=== PATIENT | female | born 1950 | race Two or more races ===

== ENCOUNTER 2024-07-24 07:06 | Inpatient (IN) | payer MEDICARE, OTHER ==
[~2024-07-24] VITALS: Ht 162.6 cm; Wt 74.9 kg
[~2024-07-24 07:06] MED LIST: ACET-1304 PO; ALBUAER3 IN; ATOR20TA PO; BENA10TA90 PO; CELE200C PO; FAMO-68 PO; GABA-339 PO; GEMF-66 PO; LORA-622 PO; METF-489 PO; METH2.5T PO
[2024-07-24] MEDS: VANCOMYCIN HCL 1000 MG VL ONE ×2 (07:32→09:11)
[2024-07-24] MEDS: ACETAMINOPHEN IV 100 ML IV ONE (07:32)
[2024-07-24] MEDS: VANCOMYCIN 1GM/250ML KIT 250 ML IV ONE (08:30)
[2024-07-24] MEDS ORDERED: ONDANSETRON HCL 4 MG/2 ML VIAL ONE (08:35)
[2024-07-24] MEDS ORDERED: KETOROLAC TROMETH 30 MG/ML 1ML VIAL ONE (08:35)
[2024-07-24] MEDS ORDERED: KETAMINE 50mg/ML 1ml syringe ONE (08:36)
[2024-07-24] MEDS ORDERED: GLYCOPYRROLATE 0.2 MG/ML 1ML VIAL ONE (08:36)
[2024-07-24] MEDS ORDERED: PROPOFOL 10 MG/ML 20 ML IV ONE (08:36)
[2024-07-24] MEDS ORDERED: LIDOCAINE 1% INJ PF 5ML AMP ONE (08:36)
[2024-07-24] MEDS: KETOROLAC TROMETH 30 MG/ML 1ML VIAL ONE (09:12)
[2024-07-24] MEDS: BUPIVACAINE HCL 0.25% P/F 10 ML VIAL ONE (09:13)
[2024-07-24] MEDS: ACETAMINOPHEN IV 1000 MG/100ML (10MG/ML) IV ONE (09:15)
[2024-07-24] MEDS: PREGABALIN CAPSULE 75 MG CAP PO ONE (09:15)
[2024-07-24] MEDS ORDERED: TRANEXAMIC ACID 20 ML ONE (09:15)
[2024-07-24] MEDS: CELECOXIB 100 MG CAP PO ONE (09:15)
[2024-07-24] MEDS ORDERED: DexAMETHasone SOD PHOS 10MG/1ML VIAL INJ ONE (09:35)
[2024-07-24] MEDS ORDERED: PHENYLEPHRINE HCL 10 MG/ML VL ONE ×2 (10:09→10:11)
[2024-07-24] MEDS ORDERED: SODIUM CHLORIDE LOCK 0 ML ONE (10:09)
[2024-07-24] MEDS ORDERED: SODIUM CHLORIDE LOCK 10 ML ONE (10:11)
[2024-07-24] MEDS: CEFEPIME 1GM/ 50ML 50 ML IV ONE (10:23)
[2024-07-24] MEDS: ROPIVACAINE 0.5% (5MG/ML) 20ML AMPULE IJ ONE (10:38)
[2024-07-24] MEDS: BUPIVACAINE HCL 50 ML ONE (10:39)
[2024-07-24] MEDS: MORPHINE SULF PF 5 MG/10 ML VIAL ONE (10:39)
[2024-07-24] MEDS ORDERED: NITROGLYCERIN 0.4 MG SL TAB SL PRN (11:15)
[2024-07-24] MEDS ORDERED: ALBUTEROL SULF HFA 90MCG INH 200DOSE IN SCH (11:15)
[2024-07-24] MEDS ORDERED: MORPHINE SULFATE INJ 2 MG/ml SYRG IV PRN (11:15)
[2024-07-24] MEDS ORDERED: DEXTROSE (50%) 50ML SYRG IV PRN (11:15)
[2024-07-24] MEDS: LACTATED RINGER'S 1,000 ML IV SCH (11:21)
[2024-07-24] MEDS ORDERED: ePHEDrine SULFATE 50 MG/ML AMP IV PRN (11:30)
[2024-07-24] MEDS ORDERED: hydrALAZINE HCL 20 MG/ML VL IV PRN (11:30)
[2024-07-24] MEDS ORDERED: ONDANSETRON HCL 4 MG/2 ML VIAL IV PRN (11:30)
[2024-07-24] MEDS ORDERED: NALOXONE HCL 0.4 MG/ML VIAL IV PRN (11:30)
[2024-07-24] MEDS ORDERED: oxyCODONE HCL 5MG TAB PO PRN (11:30)
[2024-07-24] MEDS ORDERED: fentaNYL CITRATE 100 MCG/2 ML VL IV PRN (11:30)
[2024-07-24] MEDS ORDERED: HYDROmorphone HCL 2 MG/ML VL/or syr IV PRN (11:30)
[2024-07-24] MEDS ORDERED: FLUMAZENIL 0.1 MG/ML INJ 10ML MDV IV PRN (11:30)
[2024-07-24] MEDS: ACCU-CHEK COMFORT CURVE STRIP VI SCH (12:00)
[2024-07-24] MEDS: InsuLIN REG 1unit/0.01ml Soln (100units/ml) SC SCH ×2 (12:00→22:02)
--- NOTE | 2024-07-24 12:48 | DVH ---
CLINICAL INDICATION: Status post right VALERIA TECHNIQUE: 1 radiographic views of the pelvis were obtained. Comparison: None FINDINGS/IMPRESSION: Postsurgical changes from right hip arthroplasty.
[2024-07-24 12:55] VITALS: BP 107/62; PULSE 74; RESP 18; TEMP 97.4; O2SAT 97
[2024-07-24 13:00] VITALS: RESP 16
[2024-07-24] MEDS: HYDROmorphone HCL 2 MG/ML VL/or syr IV PRN (13:59)
[2024-07-24] MEDS: SODIUM CHLOR 0.9% PF (SALINE LOCK) 10ML VIAL/SYR IV SCH (14:00)
[2024-07-24] MEDS: ONDANSETRON HCL 4 MG/2 ML VIAL IV PRN (16:35)
[2024-07-24 16:50] VITALS: BP 129/66; PULSE 74; RESP 18; TEMP 97.4; O2SAT 95
--- NOTE | 2024-07-24 17:34 | DVHOP2 ---
Operative Report - 2 Report Details Date: 07/24/24 Preop Diagnosis: Right hip osteoarthritis Postop Diagnosis: As above Surgeon: J Lusi Walters MD Manager Call Center: Gloria Guaman NP Anesthesiologist: Jamal VU Anesthesia: Regional Implant: [employer] Size 1 High offset polaris stem 50 R3 Dual mobility 28+ femoral head Consent: The patient was informed of the risks and benefits of the procedure. These include but are not limited to complications of anesthesia, postoperative infection, incomplete relief of symptoms, recurrence of symptoms, damage to blood vessels, nerves and tendons, deep venous thrombosis, pulmonary embolism and possible need for repeat surgery in the future. Estimated Blood Loss: 300 cc Name of Procedure Performed Right total hip replacement using computer navigation Procedure Details Procedure Details: FINDINGS: Extensive degenerative disease with grade IV changes INDICATION: This patient has failed non-operative treatments for hip arthritis and is now indicated for a total hip replacement. Preoperatively in the waiting area as well as in the office, I had a long discussion with the patient regarding the plan, the expected outcome, the risks, benefits, and alternatives of surgery. The risks include, but are not limited to, infection (which may require future surgery and removal of implants) , bleeding (which may require a transfusion), damage to nerves, arteries, veins, tendons, muscles and other adjacent structures. Also discussed the possibilities of dislocation, leg-length discrepancy, intraoperative fractures, implant loosening, heterotopic bone formation, and revision for variety of reasons, and medical complications etc. This was discussed at length and consent has been obtained. DESCRIPTION OF PROCEDURE: In the preoperative holding area, the consent was reviewed and the appropriate extremity was verified by the patient and marked with my initials. The patient was then transferred to the operating theatre. Appropriate anesthetia was induced. All bony prominences were well padded. A time out was performed verifying the side and site of surgery according to standard protocol. Preoperative antibiotics were given. Tranexamic acid was given. The patient was then placed in the lateral decubitus position and fixed with rigid pelvic fixation. All bony prominences were well padded and an axillary roll was placed. The affected hip area was then prepped and draped in the usual sterile fashion. Using an 11-blade, three stab incisions were made over the iliac crest. Two threaded guide pins were inserted into the crest confirming to be in bone. The pelvic array was attached to the pins and tightened. We made a standard posterolateral incision sharply through the skin and carried our dissection down through subcutaneous tissue to the underlying fascia achieving hemostasis where necessary. We incised the fascia in line with our incision. We identified and protected the sciatic nerve. We took down the external rotators and hip capsule from their insertion into the greater trochanter, tagged them and retracted them posteriorly for further protection of the sciatic nerve. A check point was placed into the greater trochanter and the hip center and leg length length were registered. We then dislocated the femoral head and performed an osteotomy of the femoral neck in accordance with our pre-operative plan. The labrum was excised with a long-handle knife, and we exposed the acetabular rim and cotyloid fossa. We then reamed up to our final size in accordance with the preoperative plan. We copiously irrigated and then impacted the final cup into position. We con firmed the position with the robotic navigation guidance. We irrigated the cup and impacted the liner, checking to make sure it was well seated. Attention was then turned to the femur. We used a box osteotome followed by a canal finder to gain entry to the canal. Intramedullary contents were suctioned and care was taken to ensure they did not touch the tissues. We sequentially reamed until good cortical contact, then broached up to out final size. We trialed with the appropriate femoral neck and head and reduced the hip. The hip was taken through a full range of motion. The hip soft tissues were examined in extension and external rotation, the anterior capsule and IT band were palpated, and combined anteversion was determined to be 40 degrees. The hip was stable at maximum flexion, at 90 degrees of flexion and 45 degrees of internal rotation and the position of sleep. Leg lengths were restored as shown using the computer navigation, and the trial LTC matched preoperative and intraoperative templating. The hip was then dislocated and trial components removed. We copiously irrigated the wound and impacted the final femoral stem into position. The femoral head was impacted onto a clean and dry trunion and confirmed to be seated. The hip was reduced ensuring to tissues in the acetabular cup. We again brought it through a full functional range of motion and there was no evidence for dislocation, instability, or impingement. The checkpoint was removed. A dilute betadine solution (17.5mL in 500mL saline) was used to wash the joint and left to sit for 3 minutes. This was then irrigated out with copious amounts of pulse lavage. We sprinkled 1g vancomycin powder below the fascia and 1g above the fascia. We copiously irrigated the wound and soft tissues. The short external rotators and capsule were repaired to the greater trochanter through drill holes, and the quadratus was repaired. We palpated the sciatic nerve in continuity without tension. The fascia was closed with vicryl and a barbed suture. We closed over the fascia with vicryl suture and re-approximated the skin with nigel. A sterile dressing was placed. We returned the patient to the supine position. We verified all lower extremity compartments were soft and compressible and that we had intact distal pulses and checked our leg length restorationism. The patient was then transferred to the recovery room in stable condition. Condition Good Disposition Still a Patient J LUIS WALTERS MD Jul 24, 2024 17:34
[2024-07-24 20:00] VITALS: PULSE 84; RESP 17; O2SAT 97
[2024-07-24] MEDS: GEMFIBROZIL 600 MG TAB PO SCH (21:49)
[2024-07-24] MEDS: DOCUSATE SOD 100 MG CAP PO SCH (21:50)
[2024-07-24] MEDS: ATORVASTATIN 20 MG TAB PO SCH (21:50)
[2024-07-24] MEDS: GABAPENTIN 300 MG CAP PO SCH (21:52)
[2024-07-25] VITALS (7 sets, daily range): BP systolic 100–149; BP diastolic 50–71; PULSE 62–98; RESP 14–20; TEMP 97.6–99.3; O2SAT 94–98
[2024-07-25 06:30] LABS: Basophils # (auto) 0 10 ^3/uL (0-0.2); Basophils % (auto) 0.1 % (0.0-2.0); Eosinophils # (auto) 0 10 ^3/uL (0-0.8); Eosinophils % (auto) 0.3 % (0.0-7.0); Hematocrit 31.4 % (36.0-46.0); Hemoglobin 10.5 g/dL (12.2-16.2); Lymphocytes # (auto) 1.6 10 ^3/uL (0.4-5.4); Lymphocytes % (auto) 16.3 % (10.0-50.0); Mean Corpuscular Hemoglobin 33.2 pg (28.0-32.0); Mean Corpuscular Hgb Conc. 33.6 g/dL (32.0-36.0); Monocytes % (auto) 10.7 % (0.0-12.0); Neutrophils # (auto) 7.1 10 ^3/uL (1.6-8.6); Neutrophils % (auto) 72.6 % (37.0-80.0); Platelet Count (auto) 265 10^3/uL (140-450); Red Blood Cells 3.17 10^6/uL (4.0-5.20); White Blood Cell 9.8 10^3/uL (4.4-10.8)
[2024-07-25 07:23] LABS: Alanine Aminotransferase 26 U/L (7-40); Albumin 3.8 g/dL (3.2-4.8); Alkaline Phosphatase 108 U/L (46-116); Anion Gap 10 (5-15); Aspartate Aminotransferase 39 U/L (13-40); BUN/Creatinine Ratio 22.8 (10.0-20.0); Blood Urea Nitrogen 18 mg/dL (9-23); Carbon Dioxide 24 mmol/L (20-31); Chloride 105 mmol/L (98-107); Glucose 102 mg/dL (74-106); Potassium 4.4 mmol/L (3.5-5.1); Sodium 139 mmol/L (136-145)
[2024-07-25 07:24] LABS: Bilirubin, Total 0.5 mg/dL (0.2-1.0); Total Protein 6.1 g/dL (5.7-8.2)
--- NOTE | 2024-07-25 08:09 | DVHPN2 ---
Progress Note Date Seen: Jul 25, 2024 Medical Necessity Reason Pt with a Central, PICC or Fol: No Subjective Patient reports: No new complaints Objective vital signs Vital Sign Date Time Temp Pulse Resp B/P (MAP) Pulse Ox O2 Delivery O2 Flow Rate FiO2 07/25/24 05:00 98.0 76 20 131/58 (82) 95 98.0 07/24/24 20:00 Nasal Cannula* 1 24 Total Intake and Output 07/24/24 07/24/24 07/25/24 15:00 23:00 07:00 Intake Total 100 ml 240 ml 400 ml Output Total 0 ml Balance 100 ml 240 ml 400 ml medications Current Medications Medications Dose Ordered Sig/Shawn Route Start Time Stop Time Status Last Admin Dose Admin Albuterol 90 mcg PRN IN 07/24/24 11:15 Cancel Atorvastatin Calcium 20 mg HS PO 07/24/24 22:00 07/24/24 21:50 20 MG Benazepril HCl 5 mg DAILY PO 07/25/24 10:00 Famotidine 40 mg DAILY PO 07/25/24 10:00 Gemfibrozil 600 mg HS PO 07/24/24 22:00 07/24/24 21:49 600 MG Loratadine 10 mg DAILY PO 07/25/24 10:00 Gabapentin 600 mg HS PO 07/24/24 22:00 Lactated Ringer's 1,000 ml @ 100 mls/hr Q10H IV 07/24/24 11:15 07/24/24 23:29 100 MLS/HR Sodium Chloride 10 ml Q8HR IV 07/24/24 14:00 07/25/24 06:20 10 ML Oxycodone/ Acetaminophen 1 tab Q4HP PRN PO 07/24/24 11:15 Hydromorphone HCl 1 mg Q2HP PRN IV 07/24/24 11:15 07/24/24 13:59 1 MG Ondansetron HCl 4 mg Q6HP PRN IV 07/24/24 11:15 07/24/24 16:35 4 MG Docusate Sodium 100 mg Q12HR PO 07/24/24 22:00 07/24/24 21:50 100 MG Enoxaparin Sodium 40 mg DAILY SC 07/25/24 10:00 Nitroglycerin 0.4 mg Q5MINP PRN SL 07/24/24 11:15 Morphine Sulfate 2 mg Q30M PRN IV 07/24/24 11:15 Vancomycin HCl 250 ml @ 250 mls/hr DAILY IV 07/25/24 10:00 07/25/24 10:59 Cefepime HCl 50 ml @ 12.5 mls/hr DAILY IV 07/25/24 10:00 Diagnostic Test (Pha) 1 strip ACHS 07/24/24 11:30 07/25/24 06:20 1 STRIP Insulin Human Regular HS SC 07/24/24 22:00 07/24/24 22:02 3 UNITS Insulin Human Regular AC SC 07/24/24 11:30 Dextrose 50 ml UD PRN IV 07/24/24 11:15 Examination: GENERAL:Normal, MSK:Abnormal laboratory and microbiology Laboratory Tests 07/25/24 06:06 Test 07/25/24 06:06 Range/Units Serum Glucose 102 74-106 mg/dL Problem List/Assessment/Plan Problem List/Assessment/Plan 1. pain control 2. WBAT RLE with walker and posterior hip precautions 3. DVT ppx 4. physical therapy 5. d/c planning for SNF 6. patient scheduled for follow up on 08/09/2024 at 11:30 Plan discussed with: Patient Date of Service: Jul 25, 2024 Billing Provider: TJ WALTERS MD Common Visit Codes: NOT BILLABLE TAD MACK NP Jul 25, 2024 08:09
[2024-07-25] MEDS: CEFEPIME 1GM/ 50ML 50 ML IV SCH (10:13)
[2024-07-25] MEDS: FAMOTIDINE 20 MG TAB PO SCH (10:14)
[2024-07-25] MEDS: LORATADINE 10 MG TAB PO SCH (10:14)
[2024-07-25] MEDS: ENOXAPARIN SOD 40 MG/0.4 ML SYRINGE SC SCH (10:26)
[2024-07-25] MEDS: LACTATED RINGER'S 1,000 ML IV SCH (11:15)
--- NOTE | 2024-07-25 11:20 | DVHHP2 ---
Review of Systems Allergies: Coded Allergies: Erythromycin (Unverified Adverse Reaction, Severe, Abdominal pain, 07/20/24) Penicillins (Unverified Adverse Reaction, Severe, SOB, 07/20/24) Medications Current Medications Medications Dose Ordered Sig/Shawn Route Start Time Stop Time Status Last Admin Dose Admin Albuterol 90 mcg PRN IN 07/24/24 11:15 Cancel Atorvastatin Calcium 20 mg HS PO 07/24/24 22:00 07/24/24 21:50 20 MG Benazepril HCl 5 mg DAILY PO 07/25/24 10:00 Famotidine 40 mg DAILY PO 07/25/24 10:00 07/25/24 10:14 40 MG Gemfibrozil 600 mg HS PO 07/24/24 22:00 07/24/24 21:49 600 MG Loratadine 10 mg DAILY PO 07/25/24 10:00 07/25/24 10:14 10 MG Gabapentin 600 mg HS PO 07/24/24 22:00 Lactated Ringer's 1,000 ml @ 100 mls/hr Q10H IV 07/24/24 11:15 07/24/24 23:29 100 MLS/HR Sodium Chloride 10 ml Q8HR IV 07/24/24 14:00 07/25/24 06:20 10 ML Oxycodone/ Acetaminophen 1 tab Q4HP PRN PO 07/24/24 11:15 Hydromorphone HCl 1 mg Q2HP PRN IV 07/24/24 11:15 07/24/24 13:59 1 MG Ondansetron HCl 4 mg Q6HP PRN IV 07/24/24 11:15 07/24/24 16:35 4 MG Docusate Sodium 100 mg Q12HR PO 07/24/24 22:00 07/25/24 10:14 100 MG Enoxaparin Sodium 40 mg DAILY SC 07/25/24 10:00 07/25/24 10:26 40 MG Nitroglycerin 0.4 mg Q5MINP PRN SL 07/24/24 11:15 Morphine Sulfate 2 mg Q30M PRN IV 07/24/24 11:15 Cefepime HCl 50 ml @ 12.5 mls/hr DAILY IV 07/25/24 10:00 07/25/24 10:13 12.5 MLS/HR Diagnostic Test (Pha) 1 strip ACHS 07/24/24 11:30 07/25/24 06:20 1 STRIP Insulin Human Regular HS SC 07/24/24 22:00 07/24/24 22:02 3 UNITS Insulin Human Regular AC SC 07/24/24 11:30 Dextrose 50 ml UD PRN IV 07/24/24 11:15 Exam Vital Signs Vital Signs Date Time Temp Pulse Resp B/P (MAP) Pulse Ox O2 Delivery O2 Flow Rate FiO2 07/25/24 08:55 99.3 74 14 119/55 (76) 98 99.3 07/24/24 20:00 Nasal Cannula* 1 24 Labs/Xrays Labs Test 07/25/24 06:06 07/25/24 05:59 Range/Units White Blood Count 9.8 4.4-10.8 10^3/uL Red Blood Count 3.17 L 4.0-5.20 10^6/uL Hemoglobin 10.5 L 12.2-16.2 g/dL Hematocrit 31.4 L 36.0-46.0 % Mean Corpuscular Volume 99.0 80.0-100.0 fL Mean Corpuscular Hemoglobin 33.2 H 28.0-32.0 pg Mean Corpuscular Hemoglobin Concent 33.6 32.0-36.0 g/dL Red Cell Distribution Width 13.0 11.8-14.3 % Platelet Count 265 140-450 10^3/uL Mean Platelet Volume 8.0 6.9-10.8 fL Neutrophils (%) (Auto) 72.6 37.0-80.0 % Lymphocytes (%) (Auto) 16.3 10.0-50.0 % Monocytes (%) (Auto) 10.7 0.0-12.0 % Eosinophils (%) (Auto) 0.3 0.0-7.0 % Basophils (%) (Auto) 0.1 0.0-2.0 % Neutrophils # (Auto) 7.1 1.6-8.6 10 ^3/uL Lymphocytes # (Auto) 1.6 0.4-5.4 10 ^3/uL Monocytes # (Auto) 1.0 0-1.3 10 ^3/uL Eosinophils # (Auto) 0 0-0.8 10 ^3/uL Basophils # (Auto) 0 0-0.2 10 ^3/uL Nucleated Red Blood Cells 0.0 % Sodium Level 139 136-145 mmol/L Potassium Level 4.4 3.5-5.1 mmol/L Chloride Level 105 98-107 mmol/L Carbon Dioxide Level 24 20-31 mmol/L Anion Gap 10 5-15 Blood Urea Nitrogen 18 9-23 mg/dL Creatinine 0.79 0.550-1.02 mg/dL Glomerular Filtration Rate Calc 77 >90 mL/min BUN/Creatinine Ratio 22.8 H 10.0-20.0 Serum Glucose 102 74-106 mg/dL Calcium Level 10.0 8.7-10.4 mg/dL Total Bilirubin 0.5 0.2-1.0 mg/dL Aspartate Amino Transferase (AST) 39 13-40 U/L Alanine Aminotransferase (ALT) 26 7-40 U/L Alkaline Phosphatase 108 46-116 U/L Total Protein 6.1 5.7-8.2 g/dL Albumin 3.8 3.2-4.8 g/dL POC Glucose 106 70-106 mg/dl Assessment/Plan Assessment/Plan see dictated note Plan discussed with: Patient My Orders Orders - GIOVANY HAHN MD Procedure Category Date Status Time Lactated Ringers 1000 PHA 07/25/24 Verified mL 11:15 Hydromorphone PHA 07/25/24 Verified Injection (Dilaudid 11:15 Complete Blood Count LAB 07/26/24 Verified 06:00 * Scheduler CONS 07/25/24 Verified Consult Date of Service: Jul 25, 2024 Billing Provider: GIOVANY HAHN MD Common Visit Codes: [id number] INP/OBS CARE (HIGH) Secondary Visit Codes: [id number] CARE PLAN 30 MINUTES GIOVANY HAHN MD Jul 25, 2024 11:20
--- NOTE | 2024-07-25 11:33 | DVHHP ---
ADMIT DATE: 07/25/2024 HISTORY OF PRESENT ILLNESS: The patient is a 74-year-old lady who was admitted after she underwent surgery on the right hip for DJD of the hip. The patient at this time denies any significant pain. No chest pain. No shortness of breath, nausea or vomiting. REVIEW OF SYSTEMS: Review of rest of systems is otherwise currently negative. PAST MEDICAL HISTORY: Significant for hypertension, hyperlipidemia, rheumatoid arthritis. MEDICATIONS: Include benazepril, Lipitor, gemfibrozil, gabapentin, methotrexate. ALLERGIES: TO ERYTHROMYCIN AND PENICILLIN. SOCIAL HISTORY: Denies smoking or alcohol. Lives alone. FAMILY HISTORY: Negative. PHYSICAL EXAMINATION: GENERAL: The patient is awake, alert. VITAL SIGNS: Temperature of 98, pulse of 76 per minute, blood pressure 130/58. SHEENT: Unremarkable. NECK: There is no JVD. No pedal edema. LUNGS: Equal bilaterally. No added sounds. CARDIOVASCULAR SYSTEM: S1, S2 is regular. No murmurs. ABDOMEN: Soft. There is no organomegaly. NEUROLOGIC: Nonfocal. MUSCULOSKELETAL: There is a dressing at the site of the right hip surgery. ASSESSMENT AND PLAN: * Hypertension, for which she will continue on benazepril. * Hyperlipidemia. * Fatty liver. * Rheumatoid arthritis, for which she is regularly on methotrexate. * Status post right hip surgery for degenerative joint disease of the hip. The patient will be placed on pain medication and receive physical therapy. Advance care planning, the patient is a full code. Time spent was 19 minutes. MD ANGELINA Cross/[facility] TID: [id number] RECEIPT: [id number]
[2024-07-25] MEDS: HYDROmorphone HCL 2 MG/ML VL/or syr IV PRN (15:40)
[2024-07-25] MEDS: BENAZEPRIL HCL 10 MG TAB PO SCH (16:00)
[2024-07-25] MEDS: VANCOMYCIN 1GM/250ML KIT 250 ML IV SCH (16:00)
[2024-07-26 01:00] VITALS: BP 148/75; PULSE 90; RESP 18; TEMP 98.4; O2SAT 95
[2024-07-26 05:00] VITALS: BP 105/57; PULSE 102; RESP 18; TEMP 98.3; O2SAT 93
[2024-07-26 07:01] LABS: Basophils # (auto) 0.1 10 ^3/uL (0-0.2); Basophils % (auto) 0.6 % (0.0-2.0); Eosinophils # (auto) 0.2 10 ^3/uL (0-0.8); Eosinophils % (auto) 1.8 % (0.0-7.0); Hematocrit 34.9 % (36.0-46.0); Hemoglobin 11.9 g/dL (12.2-16.2); Lymphocytes # (auto) 3.1 10 ^3/uL (0.4-5.4); Lymphocytes % (auto) 29.5 % (10.0-50.0); Mean Corpuscular Hemoglobin 33.8 pg (28.0-32.0); Mean Corpuscular Hgb Conc. 34.2 g/dL (32.0-36.0); Monocytes # (auto) 1.1 10 ^3/uL (0-1.3); Monocytes % (auto) 10.4 % (0.0-12.0); Neutrophils % (auto) 57.7 % (37.0-80.0); Nucleated Red Blood Cells % 0.1 %; Platelet Count (auto) 294 10^3/uL (140-450); Red Blood Cells 3.53 10^6/uL (4.0-5.20); Red Cell Distribution Width 13.1 % (11.8-14.3); White Blood Cell 10.5 10^3/uL (4.4-10.8)
--- NOTE | 2024-07-26 07:30 | DVHPN2 ---
Progress Note Date Seen: Jul 26, 2024 Medical Necessity Reason Pt with a Central, PICC or Fol: No Subjective Patient reports: No new complaints (patient is very tired this morning) Objective vital signs Vital Sign Date Time Temp Pulse Resp B/P (MAP) Pulse Ox O2 Delivery O2 Flow Rate FiO2 07/26/24 06:30 101 18 104/59 07/26/24 05:00 98.3 93 98.3 07/25/24 20:00 Nasal Cannula* 1 24 Total Intake and Output 07/25/24 07/25/24 07/26/24 15:00 23:00 07:00 Intake Total 920 ml 360 ml Balance 920 ml 360 ml medications Current Medications Medications Dose Ordered Sig/Shawn Route Start Time Stop Time Status Last Admin Dose Admin Albuterol 90 mcg PRN IN 07/24/24 11:15 Cancel Atorvastatin Calcium 20 mg HS PO 07/24/24 22:00 07/25/24 22:06 20 MG Benazepril HCl 5 mg DAILY PO 07/25/24 10:00 07/25/24 16:00 5 MG Famotidine 40 mg DAILY PO 07/25/24 10:00 07/25/24 10:14 40 MG Gemfibrozil 600 mg HS PO 07/24/24 22:00 07/25/24 22:06 600 MG Loratadine 10 mg DAILY PO 07/25/24 10:00 07/25/24 10:14 10 MG Gabapentin 600 mg HS PO 07/24/24 22:00 Sodium Chloride 10 ml Q8HR IV 07/24/24 14:00 07/26/24 06:01 10 ML Oxycodone/ Acetaminophen 1 tab Q4HP PRN PO 07/24/24 11:15 Ondansetron HCl 4 mg Q6HP PRN IV 07/24/24 11:15 07/26/24 05:50 4 MG Docusate Sodium 100 mg Q12HR PO 07/24/24 22:00 07/25/24 22:06 100 MG Enoxaparin Sodium 40 mg DAILY SC 07/25/24 10:00 07/25/24 10:26 40 MG Nitroglycerin 0.4 mg Q5MINP PRN SL 07/24/24 11:15 Morphine Sulfate 2 mg Q30M PRN IV 07/24/24 11:15 Cefepime HCl 50 ml @ 12.5 mls/hr DAILY IV 07/25/24 10:00 07/25/24 10:13 12.5 MLS/HR Dextrose 50 ml UD PRN IV 07/24/24 11:15 Lactated Ringer's 1,000 ml @ 75 mls/hr [id number] IV 07/25/24 11:15 07/25/24 11:15 75 MLS/HR Hydromorphone HCl 1 mg Q3HP PRN IV 07/25/24 11:15 07/26/24 06:00 1 MG Examination: GENERAL:Normal, MSK:Abnormal laboratory and microbiology Laboratory Tests 07/26/24 06:30 07/25/24 06:06 Test 07/25/24 06:06 Range/Units Serum Glucose 102 74-106 mg/dL Problem List/Assessment/Plan Problem List/Assessment/Plan 1. pain control 2. WBAT RLE with walker and posterior hip precautions 3. DVT ppx 4. physical therapy 5. d/c planning for SNF 6. patient scheduled for follow up on 08/09/2024 at 11:30 7. patient cleared for discharge to SNF from orthopedic standpoint with the following discharge recommendations: POSTOPERATIVE Posterior Total Hip INSTRUCTIONS Activity: 1. You can bear as much weight as you tolerate on your hip unless specifically instructed otherwise. You may use the walking aid which you were discharged with and switch to a cane whenever you feel comfortable doing so. You should use an assistive device until you can walk comfortably without it. Keep in mind that every patient moves at their own speed of recovery so take your time. 2. A physical therapist will visit you at home. 3. Although guarantees against a dislocation do not exist, the hip was noted to be sufficiently stable in surgery. Below are motions that you should dischargenot do for 4-6 weeks, depending on the surgical approach used. If there are questions, please call the office. a. Bend forward past 90 degrees b. Sit on a regular low chair, couch, car seat etc... c. Cross your legs d. Use a regular low toilet seat. e. Sleep on your stomach or on either side. 3. High impact activity such as jumping, aerobics, tennis, and skiing are not permitted during the first 3 months after surgery. These activities can contribute to accelerated wear and should be done with caution after this time. Discuss this with your surgeon if you have questions. 4. Although a bath or whirlpool is NOT permitted during the first 2-3 weeks, you may shower as soon as you get home from the hospital provided you are able to keep your bandage clean and dry and there is no wound drainage. If you are unable to place a secured covering over your bandage bed bath/sponge bath may likely be the more appropriate option. 5. Swimming is not permitted until the wound is healed, which typically occurs approximately 3-4 weeks after surgery. Wound Management: If the wound is draining please change the gauze pad on the wound until it stops. If drainage persists past 10 days please notify our office. If there is a sticky gel dressing over your wound, you may leave this in place for as long as it is clean and dry. If it becomes loose or causes skin irritation, it is OK to remove it and place clean gauze over your wound. 1. You might notice some bruising around the surgical site, this is normal. 2. Check your temperature on a daily basis. Please note that a low-grade temp below 101 is not uncommon after surgery especially during the first 3 days. Notify the office if your temperature spikes above 101.5 after the 3rd post- operative date. 3. Many patients experience significant swelling in the thigh, this may extend below the knee and sometimes to the ankle. Swelling increases during the first week and subsides during the following week. 4. Provided you have been on a blood thinner since surgery and have been up and about at least three times per day, the risk of a blood clot is low and this swelling is an expected part of recovery. It will largely or completely resolve by your first post-operative visit. 5. Crystal, if present, will be removed at 2 weeks during initial post-op visit. Medications: 1. You will be discharged with pain medication, Aspirin as a blood thinner and sometimes an anti-inflammatory medication such as Celebrex or Mobic might be prescribed. Please follow the instructions regarding these medicines as provided by your nurse at the hospital. 2. Narcotic pain medication has side effects, including constipation. Please ensure you continue to take stool softeners (Colace, Senna) while taking your pain medication to help protect against constipation. Getting up and moving around at least a few times per day helps with this also. 3. Lovenox 40 Sq x 12 days followed by one regular strength 325 mg coated aspirin daily for 4 weeks after surgery. Then, take one baby aspirin, 81 mg daily for 6 weeks more. A major, yet preventable, complication of Orthopaedic Surgery is a blood clot (DVT). It is important not to miss any doses of this important medication. 4. You should restart all of your prescription medications once discharged unless specifically instructed otherwise. 5. Herbal supplements may be restarted 2 weeks after surgery. Miscellaneous issues: 1. Driving is not permitted within the first 2 weeks. 2. Your first postoperative visit will take place 2weeks after discharge. Please call the office to arrange this appointment. 3. Antibiotic preventative treatment is required before dental or other invasive procedures. Please ask your surgeon about this at your first postoperative visit. Your hip replacement contains metal which may activate metal detectors. You may wish to carry a letter from your surgeon to communicate this to security personnel. If you experience chest pain, shortness of breath or severe painful calf swelling, go to the nearest emergency room to be evaluated. Please call our office once your situation is stabilized. Plan discussed with: Patient My Orders My Orders Orders - TAD MACK NP Procedure Category Date Status Time * [employer]ault [employer]ier CONS 07/25/24 Transmitted Consult Date of Service: Jul 26, 2024 Billing Provider: TJ WALTERS MD Common Visit Codes: NOT BILLABLE TAD MACK NP Jul 26, 2024 07:30
[2024-07-26 08:00] VITALS: PULSE 88; RESP 16
[2024-07-26] MEDS: OXYCODONE W/ ACETAMINOPHEN 5/325MG TABLET PO PRN (09:37)
--- NOTE | 2024-07-26 10:38 | DVHPN2 ---
Progress Note Date Seen: Jul 26, 2024 Medical Necessity Reason Pt with a Central, PICC or Fol: No Subjective Patient reports: No new complaints Review of Systems: HEENT:Normal, CVS:Normal, RESPIRATORY:Normal, GI:Normal, :Normal, MSK:Normal, NEURO:Normal Objective vital signs Vital Sign Date Time Temp Pulse Resp B/P (MAP) Pulse Ox O2 Delivery O2 Flow Rate FiO2 07/26/24 09:47 108/55 07/26/24 06:30 101 18 07/26/24 05:00 98.3 93 98.3 07/25/24 20:00 Nasal Cannula* 1 24 Total Intake and Output 07/25/24 07/25/24 07/26/24 15:00 23:00 07:00 Intake Total 920 ml 360 ml Balance 920 ml 360 ml medications Current Medications Medications Dose Ordered Sig/Shawn Route Start Time Stop Time Status Last Admin Dose Admin Albuterol 90 mcg PRN IN 07/24/24 11:15 Cancel Atorvastatin Calcium 20 mg HS PO 07/24/24 22:00 07/25/24 22:06 20 MG Benazepril HCl 5 mg DAILY PO 07/25/24 10:00 07/25/24 16:00 5 MG Famotidine 40 mg DAILY PO 07/25/24 10:00 07/25/24 10:14 40 MG Gemfibrozil 600 mg HS PO 07/24/24 22:00 07/25/24 22:06 600 MG Loratadine 10 mg DAILY PO 07/25/24 10:00 07/25/24 10:14 10 MG Gabapentin 600 mg HS PO 07/24/24 22:00 Sodium Chloride 10 ml Q8HR IV 07/24/24 14:00 07/26/24 06:01 10 ML Oxycodone/ Acetaminophen 1 tab Q4HP PRN PO 07/24/24 11:15 07/26/24 09:37 1 TAB Ondansetron HCl 4 mg Q6HP PRN IV 07/24/24 11:15 07/26/24 05:50 4 MG Docusate Sodium 100 mg Q12HR PO 07/24/24 22:00 07/25/24 22:06 100 MG Enoxaparin Sodium 40 mg DAILY SC 07/25/24 10:00 07/26/24 09:38 40 MG Nitroglycerin 0.4 mg Q5MINP PRN SL 07/24/24 11:15 Morphine Sulfate 2 mg Q30M PRN IV 07/24/24 11:15 Cefepime HCl 50 ml @ 12.5 mls/hr DAILY IV 07/25/24 10:00 07/26/24 09:58 12.5 MLS/HR Dextrose 50 ml UD PRN IV 07/24/24 11:15 Lactated Ringer's 1,000 ml @ 75 mls/hr [id number] IV 07/25/24 11:15 07/25/24 11:15 75 MLS/HR Hydromorphone HCl 1 mg Q3HP PRN IV 07/25/24 11:15 07/26/24 06:00 1 MG Examination: GENERAL:Normal, HEENT:Normal, NECK:Normal, LUNGS:Normal, CVS:Normal, ABDOMEN:Normal, MSK:Normal, SKIN:Normal, NEURO:Normal, :Normal laboratory and microbiology Laboratory Tests 07/26/24 06:30 07/25/24 06:06 Test 07/25/24 06:06 Range/Units Serum Glucose 102 74-106 mg/dL Problem List/Assessment/Plan Problem List/Assessment/Plan * Hypertension: dc benazepril * Hyperlipidemia. * Fatty liver. * Chest pain/nausea: trop, chest xray, tele * Rheumatoid arthritis, for which she is regularly on methotrexate. * Status post right hip surgery for degenerative joint disease of the hip. The patient will be placed on pain medication and receive physical therapy. 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 Worker CONS 07/25/24 Transmitted Consult Ekg Assessment RAYMOND 07/26/24 In Process 05:43 Ondansetron Hcl PHA 07/26/24 Verified (Zofran) 10:45 Morphine Sulfate PHA 07/26/24 Verified Injection 10:45 Pantoprazole PHA 07/26/24 Verified (Protonix) 10:45 Pantoprazole PHA 07/27/24 Verified (Protonix) 10:00 Coat Operator ORDERS 07/26/24 Verified 10:34 Troponin-I Hs LAB 07/26/24 Verified 10:34 Troponin-I Hs LAB 07/26/24 Verified 11:34 Troponin-I Hs LAB 07/26/24 Verified 13:34 Urinalysis LAB 07/26/24 Uncollected 10:34 Complete Blood Count LAB 07/27/24 Verified 06:00 Comprehensive LAB 07/27/24 Verified Metabolic Panel 06:00 Chest Portable XY 07/26/24 Verified 10:34 Date of Service: Jul 26, 2024 Billing Provider: GIOVANY HAHN MD Common Visit Codes: [id number] INP/OBS CARE(HIGH) Secondary Visit Codes: [id number] CARE PLAN 30 MINUTES GIOVANY HAHN MD Jul 26, 2024 10:38
[2024-07-26] MEDS ORDERED: ONDANSETRON HCL 4 MG/2 ML VIAL IV PRN (10:45)
--- NOTE | 2024-07-26 11:26 | DVH ---
CHEST RADIOGRAPH Indication: CHEST PAIN Technique: Single frontal view of the chest was obtained Comparison: None FINDINGS: Lines and Tubes: None Lungs: Bibasilar airspace opacities. Pleura: No effusion. No pneumothorax. Cardiomediastinal contours: Unremarkable Bones: No acute osseous abnormality. IMPRESSION: Bibasilar airspace opacities.
[2024-07-26 13:06] VITALS: BP 114/49; PULSE 103; RESP 16; TEMP 98.2; O2SAT 98
--- NOTE | 2024-07-26 13:39 | ECG ---
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
[2024-07-26] MEDS: PANTOPRAZOLE 40 MG/10 ML VIAL INJ IV ONE (15:42)
[2024-07-26 16:26] LABS: Urine Bacteria FEW /hpf (None Seen); Urine Blood Negative /uL (Negative); Urine Clarity Clear (Clear); Urine Color Light-Yellow (Yellow); Urine Mucus FEW (None Seen); Urine Protein, UAD Negative (Negative); Urine Specific Gravity 1.013 (1.001-1.035); Urine Squamous Epithelial Cell FEW /hpf (<5); Urine Urobilinogen Normal (Negative); Urine WBC 4 /HPF (0-5)
[2024-07-26 16:47] VITALS: BP 116/63; PULSE 92; RESP 16; TEMP 98.3; O2SAT 97
[2024-07-26 21:00] VITALS: BP 122/51; PULSE 92; RESP 18; TEMP 99.3; O2SAT 97
[2024-07-27] VITALS (8 sets, daily range): BP systolic 129–157; BP diastolic 54–80; PULSE 89–101; RESP 16–19; TEMP 97.9–99.8; O2SAT 92–98
[2024-07-27 07:02] LABS: Basophils # (auto) 0 10 ^3/uL (0-0.2); Basophils % (auto) 0.5 % (0.0-2.0); Eosinophils # (auto) 0.2 10 ^3/uL (0-0.8); Eosinophils % (auto) 2.8 % (0.0-7.0); Hematocrit 33.2 % (36.0-46.0); Hemoglobin 11.3 g/dL (12.2-16.2); Lymphocytes # (auto) 1.7 10 ^3/uL (0.4-5.4); Mean Corpuscular Hemoglobin 33.8 pg (28.0-32.0); Mean Corpuscular Hgb Conc. 34.1 g/dL (32.0-36.0); Mean Corpuscular Volume 99.2 fL (80.0-100.0); Monocytes % (auto) 12.2 % (0.0-12.0); Neutrophils # (auto) 5.3 10 ^3/uL (1.6-8.6); Neutrophils % (auto) 64.5 % (37.0-80.0); Nucleated Red Blood Cells % 0.1 %; Platelet Count (auto) 276 10^3/uL (140-450); Red Blood Cells 3.34 10^6/uL (4.0-5.20); Red Cell Distribution Width 13.5 % (11.8-14.3); White Blood Cell 8.2 10^3/uL (4.4-10.8)
[2024-07-27 07:15] LABS: Alanine Aminotransferase 17 U/L (7-40); Albumin 4.3 g/dL (3.2-4.8); Alkaline Phosphatase 101 U/L (46-116); Anion Gap 9 (5-15); Aspartate Aminotransferase 32 U/L (13-40); BUN/Creatinine Ratio 13.6 (10.0-20.0); Blood Urea Nitrogen 12 mg/dL (9-23); Calcium 9.8 mg/dL (8.7-10.4); Carbon Dioxide 24 mmol/L (20-31); Chloride 105 mmol/L (98-107); Potassium 4.2 mmol/L (3.5-5.1); Sodium 138 mmol/L (136-145)
[2024-07-27 07:16] LABS: Bilirubin, Total 0.6 mg/dL (0.2-1.0); Total Protein 6.7 g/dL (5.7-8.2)
[2024-07-27 07:17] LABS: Glucose 114 mg/dL (74-106)
[2024-07-27] MEDS: PANTOPRAZOLE 40 MG/10 ML VIAL INJ IV SCH (10:26)
--- NOTE | 2024-07-27 14:19 | DVHPN2 ---
Progress Note Date Seen: Jul 27, 2024 Medical Necessity Reason Pt with a Central, PICC or Fol: No Subjective Patient reports: No new complaints Review of Systems: HEENT:Normal, CVS:Normal, RESPIRATORY:Normal, GI:Normal, :Normal, MSK:Normal, NEURO:Normal Objective vital signs Vital Sign Date Time Temp Pulse Resp B/P (MAP) Pulse Ox O2 Delivery O2 Flow Rate FiO2 07/27/24 12:30 98.1 101 16 139/72 (94) 92 98.1 07/27/24 08:00 Nasal Cannula* 2 28 Total Intake and Output 07/26/24 07/26/24 07/27/24 15:00 23:00 07:00 Intake Total 50 ml 900 ml 400 ml Balance 50 ml 900 ml 400 ml medications Current Medications Medications Dose Ordered Sig/Shawn Route Start Time Stop Time Status Last Admin Dose Admin Albuterol 90 mcg PRN IN 07/24/24 11:15 Cancel Atorvastatin Calcium 20 mg HS PO 07/24/24 22:00 07/26/24 21:52 20 MG Gemfibrozil 600 mg HS PO 07/24/24 22:00 07/26/24 21:52 600 MG Loratadine 10 mg DAILY PO 07/25/24 10:00 07/27/24 10:26 10 MG Gabapentin 600 mg HS PO 07/24/24 22:00 07/26/24 21:52 600 MG Sodium Chloride 10 ml Q8HR IV 07/24/24 14:00 07/27/24 06:17 10 ML Oxycodone/ Acetaminophen 1 tab Q4HP PRN PO 07/24/24 11:15 07/27/24 10:39 1 TAB Docusate Sodium 100 mg Q12HR PO 07/24/24 22:00 07/27/24 10:26 100 MG Enoxaparin Sodium 40 mg DAILY SC 07/25/24 10:00 07/27/24 10:27 40 MG Nitroglycerin 0.4 mg Q5MINP PRN SL 07/24/24 11:15 Morphine Sulfate 2 mg Q30M PRN IV 07/24/24 11:15 Cefepime HCl 50 ml @ 12.5 mls/hr DAILY IV 07/25/24 10:00 07/27/24 11:58 12.5 MLS/HR Dextrose 50 ml UD PRN IV 07/24/24 11:15 Lactated Ringer's 1,000 ml @ 75 mls/hr [id number] IV 07/25/24 11:15 07/25/24 11:15 75 MLS/HR Ondansetron HCl 4 mg Q4HP PRN IV 07/26/24 10:45 Morphine Sulfate 2 mg Q4HPRN PRN IV 07/26/24 10:45 Pantoprazole Sodium 40 mg DAILY IV 07/27/24 10:00 07/27/24 10:26 40 MG Examination: GENERAL:Normal, HEENT:Normal, NECK:Normal, LUNGS:Normal, CVS:Normal, ABDOMEN:Normal, MSK:Normal, SKIN:Normal, NEURO:Normal, :Normal laboratory and microbiology Laboratory Tests 07/27/24 05:56 Test 07/27/24 05:56 Range/Units Serum Glucose 114 H 74-106 mg/dL Problem List/Assessment/Plan Problem List/Assessment/Plan * Hypertension: dc benazepril * Hyperlipidemia. * Fatty liver. * Chest pain/nausea: trop, chest xray, tele, cardio eval,echo * Rheumatoid arthritis, for which she is regularly on methotrexate. * Status post right hip surgery for degenerative joint disease of the hip. The patient will be placed on pain medication and receive physical therapy. Advance care planning, the patient is a full code- time spent 19 mins Plan discussed with: Patient, Daughter Date of Service: Jul 27, 2024 Billing Provider: GIOVANY HAHN MD Common Visit Codes: [id number] INP/OBS CARE(HIGH) GIOVANY HAHN MD Jul 27, 2024 14:19
[2024-07-27] MEDS: ASPirin 81 mg TAB PO ONE (14:30)
--- NOTE | 2024-07-27 16:00 | DVHINCON2 ---
Date Seen: Jul 27, 2024 Referring Physician MD Volodymyr Reason for Consultation Chest pain, elevated troponin History of Present Illness This is a 74-year-old female patient who recently underwent a total right hip replacement and was subsequently admitted as an inpatient. Cardiology is now being consulted for new onset chest pain. The patient reports that the chest pain began approximately two days ago. She describes it as unprovoked, intermittent, pressure-like in nature, left-sided and nonradiating. Associated symptoms include shortness of breath on exertion. Twelve lead electrocardiogram done at time of chest pain complaint reveals sinus rhythm with left bundle branch. Initial troponin level of 21ng/L with significant up trend and peak level of 606ng/L. Significant past medical history includes hypertension, hyperlipidemia, rheumatoid arthritis, fatty liver disease, and obesity. Past Medical History Past medical history reviewed. No other significant than mentioned above. Past Surgical History Total right hip replacement on 07/24/24 Cholecystectomy Tonsillectomy Tubal ligation Family History: Diabetes mellitus G8 MOTHER, Family History Family history reviewed. Social History Denies the use of tobacco, alcohol or illicit drugs. Allergies: Coded Allergies: Erythromycin (Unverified Adverse Reaction, Severe, Abdominal pain, 07/20/24) Penicillins (Unverified Adverse Reaction, Severe, SOB, 07/20/24) Home Meds Reported Medications Celecoxib (Celebrex) 200 Mg Cap, 200 MG PO PRN, CAP 07/20/24 Loratadine (Claritin) 10 Mg Tab, 10 MG PO DAILY, TAB 07/20/24 Acetaminophen (Tylenol Extra Strength) 500 Mg Tab, 500 MG PO PRN, TAB 07/20/24 Methotrexate (Methotrexate) 2.5 Mg Tab, 2.5 MG PO QWEEKLY, TAB 07/20/24 Metformin Hydrochloride (METFORMIN HCL ER) 500 Mg Tab, 500 MG PO DAILY, TAB 07/20/24 Gemfibrozil (Gemfibrozil) 600 Mg Tab, 600 MG PO HS, TAB 07/20/24 Gabapentin (Gabapentin) 600 Mg Tab, 600 MG PO HS, TAB 07/20/24 Famotidine (Gnp Acid Car Restorer Maximum) 20 Mg Tab, 40 MG PO DAILY, TAB 07/20/24 Benazepril Hcl (Benazepril Hcl) 10 Mg Tab, 5 MG PO DAILY, TAB 07/20/24 Atorvastatin Calcium (Lipitor) 20 Mg Tab, 20 MG PO DAILY, TAB 07/20/24 Albuterol Sulfate (VENTOLIN MDI) 90 Mcg Ih, 90 MCG IN PRN, INH 07/20/24 Home Meds Home medications reviewed. Current Medications Current Medications Medications (Trade) Dose Ordered Sig/Shawn Route PRN Reason Start Time Stop Time Status Last Admin Pantoprazole Sodium (Protonix) 40 mg DAILY IV 07/27/24 10:00 07/27/24 14:18 DC 07/27/24 10:26 Pantoprazole Sodium (Protonix Tablet) 40 mg DAILY@0600 PO 07/28/24 06:00 Aspirin 81 mg DAILY PO 07/28/24 10:00 Review of Systems Constitutional: No symptom reported Ears, Nose, & Throat: No symptom reported Eyes: No symptom reported Neurological: No symptoms reported Pulmonary/Respiratory: No symptoms reported Cardiovascular: Chest pain Gastrointestinal: No symptom reported Genitourinary: No symptom reported Musculoskeletal: No symptom reported Skin: No symptom reported Psychiatric: No symptom reported Endocrine: No symptom reported Hematologic/Lymphatic: No symptom reported Vital Signs Vital Signs Date Time Temp Pulse Resp B/P (MAP) Pulse Ox O2 Delivery O2 Flow Rate FiO2 07/27/24 12:30 98.1 101 16 139/72 (94) 92 98.1 07/27/24 08:00 Nasal Cannula* 2 28 Physical Exam General Appearance: Cooperative. Well-developed. Well-nourished. No acute distre ss. Pulmonary/Respiratory: Clear, bilateral breaths sounds. Cardiovascular/Chest: Regular rate and rhythm. Peripheral Pulses: 2+ Radial (R). 2+ Radial (L). 2+ Pedal (R). 2+ Pedal (L) Abdominal Exam: Normal bowel sounds. Ankle Exam: Negative ankle edema Lower extremities: Negative lower extremity edema Neuro/Mental Status: A/OX4, coherent. Thoughts/Psych: Normal thought pattern. Appropriate mood and affect. Good judgment and insight. Appearance: No acute distress. Skin Exam: Dressing to right hip. Skin warm and dry Labs/Diagnostic Data Labs Test 07/27/24 05:56 07/26/24 14:30 07/26/24 13:49 07/26/24 06:30 Range/Units White Blood Count 8.2 4.4-10.8 10^3/uL Red Blood Count 3.34 L 4.0-5.20 10^6/uL Hemoglobin 11.3 L 12.2-16.2 g/dL Hematocrit 33.2 L 36.0-46.0 % Mean Corpuscular Volume 99.2 80.0-100.0 fL Mean Corpuscular Hemoglobin 33.8 H 28.0-32.0 pg Mean Corpuscular Hemoglobin Concent 34.1 32.0-36.0 g/dL Red Cell Distribution Width 13.5 11.8-14.3 % Platelet Count 276 140-450 10^3/uL Mean Platelet Volume 8.2 6.9-10.8 fL Neutrophils (%) (Auto) 64.5 37.0-80.0 % Lymphocytes (%) (Auto) 20.0 10.0-50.0 % Monocytes (%) (Auto) 12.2 H 0.0-12.0 % Eosinophils (%) (Auto) 2.8 0.0-7.0 % Basophils (%) (Auto) 0.5 0.0-2.0 % Neutrophils # (Auto) 5.3 1.6-8.6 10 ^3/uL Lymphocytes # (Auto) 1.7 0.4-5.4 10 ^3/uL Monocytes # (Auto) 1.0 0-1.3 10 ^3/uL Eosinophils # (Auto) 0.2 0-0.8 10 ^3/uL Basophils # (Auto) 0 0-0.2 10 ^3/uL Nucleated Red Blood Cells 0.1 % Sodium Level 138 136-145 mmol/L Potassium Level 4.2 3.5-5.1 mmol/L Chloride Level 105 98-107 mmol/L Carbon Dioxide Level 24 20-31 mmol/L Anion Gap 9 5-15 Blood Urea Nitrogen 12 9-23 mg/dL Creatinine 0.88 0.550-1.02 mg/dL Glomerular Filtration Rate Calc 68 >90 mL/min BUN/Creatinine Ratio 13.6 10.0-20.0 Serum Glucose 114 H 74-106 mg/dL Calcium Level 9.8 8.7-10.4 mg/dL Total Bilirubin 0.6 0.2-1.0 mg/dL Aspartate Amino Transferase (AST) 32 13-40 U/L Alanine Aminotransferase (ALT) 17 7-40 U/L Alkaline Phosphatase 101 46-116 U/L Total Protein 6.7 5.7-8.2 g/dL Albumin 4.3 3.2-4.8 g/dL Urine Color Light-yellow Yellow Urine Clarity Clear Clear Urine pH 6.0 5.0-9.0 Urine Specific Shields 1.013 1.001-1.035 Urine Protein Negative Negative Urine Ketones Negative Negative Urine Blood Negative Negative /uL Urine Nitrite Negative Negative Urine Bilirubin Negative Negative Urine Urobilinogen Normal Negative mg/dL Urine Leukocyte Esterase Negative Negative /uL Urine RBC <1 0 - 4 /hpf Urine Microscopic WBC 4 0-5 /HPF Urine Squamous Epithelial Cells Few <5 /hpf Urine Bacteria Few H None Seen /hpf Urine Mucus Few None Seen Urine Glucose Normal Normal mg/dL Troponin I High Sensitivity 606 *H </=34 ng/L Hemoglobin A1c 5.7 <5.7 % A1C Test 07/25/24 05:59 Range/Units POC Glucose 106 70-106 mg/dl Assessment NSTEMI Rule out pulmonary embolism Hypertension Hyperlipidemia 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 Bernal): * Transthoracic echocardiogram reveals EF 60% * Chest pain protocol * HEART score: 4 points (moderate) * KEVIN score: 2 points * Trend troponin level * Repeat EKG in AM * Close Cardiac surveillance * Obtain D-Dimer Case discussed with . We will consider taking the patient for coronary angiogram once pulmonary embolism ruled out. D-dimer ordered, we will follow up on results. Thank you for allowing us to care for this patient. Please call with any questions or concerns. Critical care time spent: 42 minutes This medical document was created using an electronic medical record system with voice recognition software and computerized dictation system. Although this document has been carefully reviewed, there might still be some phonetic and typographical errors. Occasional wrong-word or ``sound-alike substitutions may have occurred due to the inherent limitations of voice recognition software. These areas are purely typographical due to imperfections of the software programs and do not reflect any compromise in the patient's medical care. Please read the chart carefully and recognize, using context, where these substitutions have occurred. Plan discussed with: Patient NYHA Physical activity limitations: NA Date of Service: Jul 27, 2024 Billing Provider: FABRICE LOAIZA SKETCH [employer]ER Cardiology Common Codes: [id number] INP/OBS CARE (High) Cardiology Consultation Codes: [id number] CONSULT <45MIN FABRICE LOAIZA Jul 27, 2024 16:00
--- NOTE | 2024-07-27 18:18 | DVHSR ---
APPROVED REPORT EXAM: LIMITED Two-dimensional and M-mode echocardiogram with Doppler and color Doppler. Blood Pressure: 139/72 mmHg INDICATION Chest Pain RISK FACTORS Obesity: Height: 5'4, Weight: 175 DIMENSIONS LVDd3.3 (3.8-5.7cm)LA (2D)3.7 (1.9-4.0cm)Aortic Root3.4 (2.0-3.7cm) LVDs2.3 (2.5-4.0cm)LA (MM) (1.9-4.0cm)Aortic Cusp Exc1.7 (1.5-2.0cm) EF (%) 55.0 (55-70%)Rt. Atrium2.5 (1.9-4.0cm)Asc. Aorta3.4 cm IVSd1.0 (0.7-1.1cm)RV (D)3.3 (1.8-2.4cm) PWd1.3 (0.7-1.1cm) Mitral Valve MitralMitral Stenosis E wave0.96m/sMV Mean GR.mmHg A wave1.47m/sMV Peak GR.mmHg E/A ratio0.72D MVAcm2 DECEL [id number] 1/2 Timems Aortic Valve Aortic ValveAortic Stenosis V10.93m/Rosemarie Mean GR.4mmHg V21.21m/Rosemarie Peak GR.6mmHg LVOT Diameter2.1 (1.8-2.4cm)Doppler AVA2.66cm2 Pulmonic Valve V20.97m/s Tricuspid Valve TR Velocity2.25m/s [id number] Conclusion Sinus rhythm. Concentric LVH with aortic root enlargement and left atrial enlargement. RV enlargement. Moderate mitral annular calcification of the base of the posterior mitral leaflet. Mild aortic scler osis with adequate excursion of the aortic leaflets. Left ventricular function is preserved at 60% with normal RV function. Mild tricuspid regurgitation. No pericardial effusion masses or vegetations.
[2024-07-27] MEDS: MORPHINE SULFATE INJ 2 MG/ml SYRG IV PRN (21:17)
[2024-07-28] VITALS (8 sets, daily range): BP systolic 120–139; BP diastolic 58–74; PULSE 76–102; RESP 17–20; TEMP 97.6–98.4; O2SAT 94–100
[2024-07-28] MEDS: PANTOPRAZOLE 40 MG TAB PO SCH (05:50)
[2024-07-28] MEDS: ASPirin 81 mg TAB PO SCH (09:04)
--- NOTE | 2024-07-28 11:32 | DVHPN2 ---
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 Objective vital signs Vital Sign Date Time Temp Pulse Resp B/P (MAP) Pulse Ox O2 Delivery O2 Flow Rate FiO2 07/28/24 08:30 98.3 94 18 124/64 (84) 100 98.3 07/27/24 20:00 Nasal Cannula* 2 28 Total Intake and Output 07/27/24 07/27/24 07/28/24 15:00 23:00 07:00 Intake Total 500 ml 400 ml Balance 500 ml 400 ml medications Current Medications Medications Dose Ordered Sig/Shawn Route Start Time Stop Time Status Last Admin Dose Admin Albuterol 90 mcg PRN IN 07/24/24 11:15 Cancel Atorvastatin Calcium 20 mg HS PO 07/24/24 22:00 07/27/24 21:22 20 MG Gemfibrozil 600 mg HS PO 07/24/24 22:00 07/27/24 21:22 600 MG Loratadine 10 mg DAILY PO 07/25/24 10:00 07/27/24 10:26 10 MG Gabapentin 600 mg HS PO 07/24/24 22:00 07/27/24 21:25 600 MG Sodium Chloride 10 ml Q8HR IV 07/24/24 14:00 07/28/24 05:51 10 ML Oxycodone/ Acetaminophen 1 tab Q4HP PRN PO 07/24/24 11:15 07/28/24 10:44 1 TAB Docusate Sodium 100 mg Q12HR PO 07/24/24 22:00 07/28/24 10:45 100 MG Enoxaparin Sodium 40 mg DAILY SC 07/25/24 10:00 07/28/24 10:45 40 MG Nitroglycerin 0.4 mg Q5MINP PRN SL 07/24/24 11:15 Morphine Sulfate 2 mg Q30M PRN IV 07/24/24 11:15 Cefepime HCl 50 ml @ 12.5 mls/hr DAILY IV 07/25/24 10:00 07/28/24 09:04 12.5 MLS/HR Dextrose 50 ml UD PRN IV 07/24/24 11:15 Ondansetron HCl 4 mg Q4HP PRN IV 07/26/24 10:45 Morphine Sulfate 2 mg Q4HPRN PRN IV 07/26/24 10:45 07/27/24 21:17 2 MG Pantoprazole Sodium 40 mg DAILY@0600 PO 07/28/24 06:00 07/28/24 10:44 40 MG Aspirin 81 mg DAILY PO 07/28/24 10:00 07/28/24 09:04 81 MG Examination: GENERAL:Normal, LUNGS:Normal, CVS:Normal, NEURO:Normal laboratory and microbiology Laboratory Tests 07/27/24 05:56 Test 07/27/24 05:56 Range/Units Serum Glucose 114 H 74-106 mg/dL Problem List/Assessment/Plan Problem List/Assessment/Plan NSTEMI, rule out coronary artery disease Ruled out pulmonary embolism Hypertension Hyperlipidemia 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 Graff): * Transthoracic echocardiogram reveals EF 60% * Chest pain protocol * HEART score: 4 points (moderate) * KEVIN score: 2 points * Close Cardiac surveillance Patient seen and examined at bedside with . The patient underwent a chest CT with contrast in which no evidence of pulmonary embolism was found. Given that the patient experienced chest pain and had a up trend in troponin level, we offered the patient a coronary angiogram with left heart catheterization. At this time, the patient would like to discuss it with her daughter who was at bedside. Patient and daughter would like to think about it overnight. Continue with medical management at this time. Patient states that she will have an answer by tomorrow. Thank you for allowing us to care for this patient. Please call with any questions or concerns. This medical document was created using an electronic medical record system with voice recognition software and computerized dictation system. Although this document has been carefully reviewed, there might still be some phonetic and typographical errors. Occasional wrong-word or ``sound-alike substitutions may have occurred due to the inherent limitations of voice recognition software. These areas are purely typographical due to imperfections of the software programs and do not reflect any compromise in the patient's medical care. Please read the chart carefully and recognize, using context, where these substitutions have occurred. Plan discussed with: Patient Date of Service: Jul 28, 2024 Billing Provider: FABRICE LOAIZA Common Visit Codes: [id number] INP/OBS CARE(HIGH) FABRICE LOAIZA Jul 28, 2024 11:32
[2024-07-28] MEDS: IOHEXOL 350 MG/ML 100ML IJ ONE (14:37)
--- NOTE | 2024-07-28 15:17 | DVH ---
CTA CHEST INDICATION: rule out PE; chest pain TECHNIQUE: Multidetector CTA of the chest was performed of the chest with 100 cc of intravenous contr ast. PULMONARY ANGIOGRAPHY PROTOCOL was utilized using a bolus-tracking technique centered on the carmen n pulmonary artery. Axial, coronal and sagittal multiplanar and MIP reformats were performed. Radiation Dose Information: CT Dose: CTDI volume is 18 mGy. Dose-length product is 629 mGy*cm The dose indicators for CT are the volume Computed Tomography (CT) Dose Index (CTDIvol) and the Dose Length Product (DLP), and are measured in units of mGy and mGy-cm, respectively. These indicators are not patient dose, but values generated from the CT scanner acquisition factors. The report includes radiation exposure data for exposures received during this examination. Comparison: None Findings: Pulmonary artery: There is no evidence of a pulmonary arterial filling defect to suggest pulmonary e mbolism. The main pulmonary artery is mildly prominent size. Lungs/Pleura: There is pleural-parenchymal scarring in the bilateral lower lobes with mild bronchiec tasis. There are patchy ground-glass opacities in the lungs bilaterally, [id number]-right whic h May relate to pulmonary edema. There is no evidence of pleural effusion. Heart/Vascular Structures: There is cardiomegaly. There is no pericardial effusion. There are geronimo ry artery calcifications. The thoracic aorta demonstrates normal caliber. Lymph Nodes: There is no evidence of thoracic lymphadenopathy. Musculoskeletal: No acute osseous abnormality. Upper abdomen: Limited portions of the upper abdomen are unremarkable. IMPRESSION: 1. There is no evidence of a pulmonary arterial filling defect to suggest pulmonary embolism. 2. Cardiomegaly. There are patchy ground-glass opacities in the lungs bilaterally, [id number] -right which May relate to pulmonary edema. 3. Pleural-parenchymal scarring in the bilateral lower lobes with mild bronchiectasis. HS:Y
--- NOTE | 2024-07-28 20:24 | DVHPN2 ---
Subjective in bed resting, daughter at bedside, discussed about care plan Changes from previous H/P or p: No Changes Objective Vitals Vital Signs Date Time Temp Pulse Resp B/P (MAP) Pulse Ox O2 Delivery O2 Flow Rate FiO2 07/28/24 16:30 98.3 94 20 120/74 (89) 96 98.3 07/28/24 08:00 Nasal Cannula* 2 28 Intake/Output Intake and Output 07/28/24 05:00 Intake Total 900 ml Balance 900 ml Intake Oral 900 ml # Voids 4 General Appearance: Alert, Oriented X3 HEENT: Atraumatic Lungs: Clear to auscultation Medications Current Medications Medications Dose Ordered Sig/Shawn Route Start Time Stop Time Status Last Admin Dose Admin Albuterol 90 mcg PRN IN 07/24/24 11:15 Cancel Atorvastatin Calcium 20 mg HS PO 07/24/24 22:00 07/27/24 21:22 20 MG Gemfibrozil 600 mg HS PO 07/24/24 22:00 07/27/24 21:22 600 MG Loratadine 10 mg DAILY PO 07/25/24 10:00 07/28/24 10:00 10 MG Gabapentin 600 mg HS PO 07/24/24 22:00 07/27/24 21:25 600 MG Sodium Chloride 10 ml Q8HR IV 07/24/24 14:00 07/28/24 05:51 10 ML Oxycodone/ Acetaminophen 1 tab Q4HP PRN PO 07/24/24 11:15 07/28/24 18:17 1 TAB Docusate Sodium 100 mg Q12HR PO 07/24/24 22:00 07/28/24 10:45 100 MG Enoxaparin Sodium 40 mg DAILY SC 07/25/24 10:00 07/28/24 10:45 40 MG Nitroglycerin 0.4 mg Q5MINP PRN SL 07/24/24 11:15 Morphine Sulfate 2 mg Q30M PRN IV 07/24/24 11:15 Cefepime HCl 50 ml @ 12.5 mls/hr DAILY IV 07/25/24 10:00 07/28/24 09:04 12.5 MLS/HR Dextrose 50 ml UD PRN IV 07/24/24 11:15 Ondansetron HCl 4 mg Q4HP PRN IV 07/26/24 10:45 Morphine Sulfate 2 mg Q4HPRN PRN IV 07/26/24 10:45 07/27/24 21:17 2 MG Pantoprazole Sodium 40 mg DAILY@0600 PO 07/28/24 06:00 07/28/24 10:44 40 MG Aspirin 81 mg DAILY PO 07/28/24 10:00 07/28/24 09:04 81 MG Laboratory Results Laboratory Tests 07/27/24 05:56 Urinalysis Test 07/26/24 14:30 Urine Color Light-yellow (Yellow) Urine Clarity Clear (Clear) Urine pH 6.0 (5.0-9.0) Urine Specific [place] 1.013 (1.001-1.035) Urine Protein Negative (Negative) Urine Ketones Negative (Negative) Urine Blood Negative /uL (Negative) Urine Nitrite Negative (Negative) Urine Bilirubin Negative (Negative) Urine Urobilinogen Normal mg/dL (Negative) Urine Leukocyte Esterase Negative /uL (Negative) Urine RBC <1 /hpf (0 - 4) Urine Microscopic WBC 4 /HPF (0-5) Urine Squamous Epithelial Cells Few /hpf (<5) Urine Bacteria Few /hpf (None Seen) H Urine Mucus Few (None Seen) Urine Glucose Normal mg/dL (Normal) Assessment/Plan Assessment/Plan s/p hip surgery HTN Elevated troponins As per cardiology will take to angio continue home meds Plan discussed with: Patient Date of Service: Jul 28, 2024 Billing Provider: UZAIR JAUREGUI MD Common Visit Codes: [id number] INP/OBS CARE(HIGH) UZAIR JAUREGUI MD Jul 28, 2024 20:24
--- NOTE | 2024-07-28 23:31 | DVHPN2 ---
Consult Progress Note Subjective Other Systems: Patient was seen and evaluated in follow up. Patient denies any chest pain. Patient remains in sinus tachycardia on cafeteria monitor. CTA chest shows no evidence of a pulmonary arterial filling defect to suggest pulmonary embolism. There is cardiomegaly, patchy ground-glass opacities in the lungs bilaterally, [id number] which May relate to pulmonary edema. Pleural-parenchymal scarring in the bilateral lower lobes with mild bronchiectasis. Objective vital signs Vital Sign Date Time Temp Pulse Resp B/P (MAP) Pulse Ox O2 Delivery O2 Flow Rate FiO2 07/28/24 21:00 98.1 89 18 139/72 (94) 98 98.1 07/28/24 20:00 Nasal Cannula* 2 28 Total Intake and Output 07/27/24 07/27/24 07/28/24 15:00 23:00 07:00 Intake Total 500 ml 400 ml Balance 500 ml 400 ml medications Current Medications Medications Dose Ordered Sig/Shawn Route Start Time Stop Time Status Last Admin Dose Admin Albuterol 90 mcg PRN IN 07/24/24 11:15 Cancel Atorvastatin Calcium 20 mg HS PO 07/24/24 22:00 07/28/24 21:45 20 MG Gemfibrozil 600 mg HS PO 07/24/24 22:00 07/28/24 21:46 600 MG Loratadine 10 mg DAILY PO 07/25/24 10:00 07/28/24 10:00 10 MG Gabapentin 600 mg HS PO 07/24/24 22:00 07/28/24 21:46 600 MG Sodium Chloride 10 ml Q8HR IV 07/24/24 14:00 07/28/24 05:51 10 ML Oxycodone/ Acetaminophen 1 tab Q4HP PRN PO 07/24/24 11:15 07/28/24 18:17 1 TAB Docusate Sodium 100 mg Q12HR PO 07/24/24 22:00 07/28/24 21:45 100 MG Enoxaparin Sodium 40 mg DAILY SC 07/25/24 10:00 07/28/24 10:45 40 MG Nitroglycerin 0.4 mg Q5MINP PRN SL 07/24/24 11:15 Morphine Sulfate 2 mg Q30M PRN IV 07/24/24 11:15 Cefepime HCl 50 ml @ 12.5 mls/hr DAILY IV 07/25/24 10:00 07/28/24 09:04 12.5 MLS/HR Dextrose 50 ml UD PRN IV 07/24/24 11:15 Ondansetron HCl 4 mg Q4HP PRN IV 07/26/24 10:45 Morphine Sulfate 2 mg Q4HPRN PRN IV 07/26/24 10:45 07/27/24 21:17 2 MG Pantoprazole Sodium 40 mg DAILY@0600 PO 07/28/24 06:00 07/28/24 10:44 40 MG Aspirin 81 mg DAILY PO 07/28/24 10:00 07/28/24 09:04 81 MG Examination: GENERAL:Normal, HEENT:Normal, LUNGS:Normal, CVS:Normal, ABDOMEN:Normal, MSK:Normal, NEURO:Normal laboratory and microbiology Laboratory Tests 07/27/24 05:56 Test 07/27/24 05:56 Range/Units Serum Glucose 114 H 74-106 mg/dL Problem List/Assessment/Plan Problem List/Assessment/Plan NSTEMI, rule out coronary artery disease. Ruled out pulmonary embolism. Hypertension. Hyperlipidemia. Severe right hip osteoarthritis status post total right hip replacement. Rheumatoid arthritis. Fatty liver disease. Obesity. Plan/Recommendation Continued all current supportive medical care. Patient has been seen by Rachel Fishman NP on my behalf, her and I discussed the plan with the patient. Telemetry reviewed. Transthoracic echocardiogram reveals EF 60% Chest pain protocol. HEART score: 4 points (moderate). KEVIN score: 2 points. Close Cardiac surveillance. Additional plan as per the hospital course. Plan discussed with: Patient Date of Service: Jul 28, 2024 Billing Provider: LU COLEMAN MD Cardiology Common Codes: [id number] HOSP CARE(High LU COLEMAN MD Jul 28, 2024 22:35
[2024-07-29] VITALS (8 sets, daily range): BP systolic 120–163; BP diastolic 60–75; PULSE 88–100; RESP 15–18; TEMP 97.7–98.4; O2SAT 91–98
--- NOTE | 2024-07-29 10:27 | DVHPN2 ---
Consult Progress Note Subjective Patient reports: No new complaints Review of Systems: CVS:Normal (Denies chest pain, palpitations), RESPIRATORY:Abnormal (Denies shortness of breath) Objective vital signs Vital Sign Date Time Temp Pulse Resp B/P (MAP) Pulse Ox O2 Delivery O2 Flow Rate FiO2 07/29/24 09:00 98.1 95 18 125/60 (81) 96 98.1 07/28/24 20:00 Nasal Cannula* 2 28 Total Intake and Output 07/28/24 07/28/24 07/29/24 15:00 23:00 07:00 Intake Total 50 ml 480 ml 600 ml Balance 50 ml 480 ml 600 ml medications Current Medications Medications Dose Ordered Sig/Shawn Route Start Time Stop Time Status Last Admin Dose Admin Albuterol 90 mcg PRN IN 07/24/24 11:15 Cancel Atorvastatin Calcium 20 mg HS PO 07/24/24 22:00 07/28/24 21:45 20 MG Gemfibrozil 600 mg HS PO 07/24/24 22:00 07/28/24 21:46 600 MG Loratadine 10 mg DAILY PO 07/25/24 10:00 07/29/24 09:10 10 MG Gabapentin 600 mg HS PO 07/24/24 22:00 07/28/24 21:46 600 MG Sodium Chloride 10 ml Q8HR IV 07/24/24 14:00 07/28/24 05:51 10 ML Oxycodone/ Acetaminophen 1 tab Q4HP PRN PO 07/24/24 11:15 07/29/24 09:49 1 TAB Docusate Sodium 100 mg Q12HR PO 07/24/24 22:00 07/29/24 09:10 100 MG Enoxaparin Sodium 40 mg DAILY SC 07/25/24 10:00 07/29/24 09:09 40 MG Nitroglycerin 0.4 mg Q5MINP PRN SL 07/24/24 11:15 Morphine Sulfate 2 mg Q30M PRN IV 07/24/24 11:15 Cefepime HCl 50 ml @ 12.5 mls/hr DAILY IV 07/25/24 10:00 07/29/24 09:09 12.5 MLS/HR Dextrose 50 ml UD PRN IV 07/24/24 11:15 Ondansetron HCl 4 mg Q4HP PRN IV 07/26/24 10:45 Morphine Sulfate 2 mg Q4HPRN PRN IV 07/26/24 10:45 07/27/24 21:17 2 MG Pantoprazole Sodium 40 mg DAILY@0600 PO 07/28/24 06:00 07/28/24 10:44 40 MG Aspirin 81 mg DAILY PO 07/28/24 10:00 07/29/24 09:09 81 MG Examination: CVS:Normal (Telemetry reviewed and consistent with sinus tachycardia 102 beats per minute.) laboratory and microbiology Laboratory Tests 07/27/24 05:56 Test 07/27/24 05:56 Range/Units Serum Glucose 114 H 74-106 mg/dL Problem List/Assessment/Plan Problem List/Assessment/Plan Problem List/Assessment/Plan NSTEMI, rule out coronary artery disease Ruled out pulmonary embolism Hypertension Hyperlipidemia 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 Graff): * Transthoracic echocardiogram reveals EF 60% * Chest pain protocol * HEART score: 4 points (moderate) * KEVIN score: 2 points * Close Cardiac surveillance Case Discussed with Dr. Graff. CT angio negative for PE. Given that the patient experienced chest pain and had a up trend in troponin level, we offered the patient a coronary angiogram with left heart catheterization. Patient continues to want to think about it. Patient let known that if she feels she does not want it now she can always follow up outpatient for ischemic workup, spoke about risks and benefits with possible [place], arrhythmias, up to . Patient verbalized understanding of risks. If patient decides she does not want angiogram at this time may discharge from cardiology standpoint and follow up outpatient. Continue aspirin and statin. Continue with medical management at this time. Thank you for allowing us to care for this patient. Please call with any questions or concerns. This medical document was created using an electronic medical record system with voice recognition software and computerized dictation system. Although this document has been carefully reviewed, there might still be some phonetic and typographical errors. Occasional wrong-word or ``sound-alike substitutions may have occurred due to the inherent limitations of voice recognition software. These areas are purely typographical due to imperfections of the software programs and do not reflect any compromise in the patient's medical care. Please read the chart carefully and recognize, using context, where these substitutions have occurred. Thank you for allowing me to participate in the management of this patient. Plan discussed with: Patient Date of Service: Jul 29, 2024 Billing Provider: NAWAF SCHMIDT Common Visit Codes: [id number] INP/OBS CARE(HIGH) NAWAF SCHMIDT Jul 29, 2024 10:27
--- NOTE | 2024-07-29 19:06 | DVHPN2 ---
Subjective in bed resting, daughter at bedside, discussed about care plan Changes from previous H/P or p: No Changes Objective Vitals Vital Signs Date Time Temp Pulse Resp B/P (MAP) Pulse Ox O2 Delivery O2 Flow Rate FiO2 07/29/24 17:00 98.0 88 16 145/75 (98) 98 98.0 07/29/24 08:00 Room Air* 0 21 Intake/Output Intake and Output 07/29/24 05:00 Intake Total 1130 ml Balance 1130 ml Intake Oral 1080 ml IV Total 50 ml # Voids 5 General Appearance: Alert, Oriented X3 HEENT: Atraumatic Lungs: Clear to auscultation Medications Current Medications Medications Dose Ordered Sig/Shawn Route Start Time Stop Time Status Last Admin Dose Admin Albuterol 90 mcg PRN IN 07/24/24 11:15 Cancel Atorvastatin Calcium 20 mg HS PO 07/24/24 22:00 07/28/24 21:45 20 MG Gemfibrozil 600 mg HS PO 07/24/24 22:00 07/28/24 21:46 600 MG Loratadine 10 mg DAILY PO 07/25/24 10:00 07/29/24 09:10 10 MG Gabapentin 600 mg HS PO 07/24/24 22:00 07/28/24 21:46 600 MG Sodium Chloride 10 ml Q8HR IV 07/24/24 14:00 07/29/24 14:00 10 ML Oxycodone/ Acetaminophen 1 tab Q4HP PRN PO 07/24/24 11:15 07/29/24 09:49 1 TAB Docusate Sodium 100 mg Q12HR PO 07/24/24 22:00 07/29/24 09:10 100 MG Enoxaparin Sodium 40 mg DAILY SC 07/25/24 10:00 07/29/24 09:09 40 MG Nitroglycerin 0.4 mg Q5MINP PRN SL 07/24/24 11:15 Morphine Sulfate 2 mg Q30M PRN IV 07/24/24 11:15 Cefepime HCl 50 ml @ 12.5 mls/hr DAILY IV 07/25/24 10:00 07/29/24 09:09 12.5 MLS/HR Dextrose 50 ml UD PRN IV 07/24/24 11:15 Ondansetron HCl 4 mg Q4HP PRN IV 07/26/24 10:45 Morphine Sulfate 2 mg Q4HPRN PRN IV 07/26/24 10:45 07/27/24 21:17 2 MG Pantoprazole Sodium 40 mg DAILY@0600 PO 07/28/24 06:00 07/28/24 10:44 40 MG Aspirin 81 mg DAILY PO 07/28/24 10:00 07/29/24 09:09 81 MG Laboratory Results Laboratory Tests 07/27/24 05:56 Urinalysis Test 07/26/24 14:30 Urine Color Light-yellow (Yellow) Urine Clarity Clear (Clear) Urine pH 6.0 (5.0-9.0) Urine Specific [place] 1.013 (1.001-1.035) Urine Protein Negative (Negative) Urine Ketones Negative (Negative) Urine Blood Negative /uL (Negative) Urine Nitrite Negative (Negative) Urine Bilirubin Negative (Negative) Urine Urobilinogen Normal mg/dL (Negative) Urine Leukocyte Esterase Negative /uL (Negative) Urine RBC <1 /hpf (0 - 4) Urine Microscopic WBC 4 /HPF (0-5) Urine Squamous Epithelial Cells Few /hpf (<5) Urine Bacteria Few /hpf (None Seen) H Urine Mucus Few (None Seen) Urine Glucose Normal mg/dL (Normal) Assessment/Plan Assessment/Plan s/p hip surgery HTN Elevated troponins As per cardiology will take to angio continue home meds Plan discussed with: Patient Date of Service: Jul 29, 2024 Billing Provider: UZAIR JAUREGUI MD Common Visit Codes: [id number] INP/OBS CARE(HIGH) UZAIR JAUREGUI MD Jul 29, 2024 19:06
--- NOTE | 2024-07-29 19:47 | DVHPN2 ---
Consult Progress Note Subjective Patient reports: No new complaints Review of Systems: CVS:Normal, RESPIRATORY:Abnormal Other Systems: Patient was seen and evaluated in follow up. Patient reports feeling better. She denies any chest pain, palpitations or shortness of breath. Telemetry reviewed and consistent with sinus tachycardia 102 beats per minute. Objective vital signs Vital Sign Date Time Temp Pulse Resp B/P (MAP) Pulse Ox O2 Delivery O2 Flow Rate FiO2 07/29/24 13:00 98.4 96 16 129/75 (93) 96 98.4 07/29/24 08:00 Room Air* 0 21 Total Intake and Output 07/28/24 07/28/24 07/29/24 15:00 23:00 07:00 Intake Total 50 ml 480 ml 600 ml Balance 50 ml 480 ml 600 ml medications Current Medications Medications Dose Ordered Sig/Shawn Route Start Time Stop Time Status Last Admin Dose Admin Albuterol 90 mcg PRN IN 07/24/24 11:15 Cancel Atorvastatin Calcium 20 mg HS PO 07/24/24 22:00 07/28/24 21:45 20 MG Gemfibrozil 600 mg HS PO 07/24/24 22:00 07/28/24 21:46 600 MG Loratadine 10 mg DAILY PO 07/25/24 10:00 07/29/24 09:10 10 MG Gabapentin 600 mg HS PO 07/24/24 22:00 07/28/24 21:46 600 MG Sodium Chloride 10 ml Q8HR IV 07/24/24 14:00 07/28/24 05:51 10 ML Oxycodone/ Acetaminophen 1 tab Q4HP PRN PO 07/24/24 11:15 07/29/24 09:49 1 TAB Docusate Sodium 100 mg Q12HR PO 07/24/24 22:00 07/29/24 09:10 100 MG Enoxaparin Sodium 40 mg DAILY SC 07/25/24 10:00 07/29/24 09:09 40 MG Nitroglycerin 0.4 mg Q5MINP PRN SL 07/24/24 11:15 Morphine Sulfate 2 mg Q30M PRN IV 07/24/24 11:15 Cefepime HCl 50 ml @ 12.5 mls/hr DAILY IV 07/25/24 10:00 07/29/24 09:09 12.5 MLS/HR Dextrose 50 ml UD PRN IV 07/24/24 11:15 Ondansetron HCl 4 mg Q4HP PRN IV 07/26/24 10:45 Morphine Sulfate 2 mg Q4HPRN PRN IV 07/26/24 10:45 07/27/24 21:17 2 MG Pantoprazole Sodium 40 mg DAILY@0600 PO 07/28/24 06:00 07/28/24 10:44 40 MG Aspirin 81 mg DAILY PO 07/28/24 10:00 07/29/24 09:09 81 MG Examination: GENERAL:Normal, HEENT:Normal, NECK:Normal, LUNGS:Normal, CVS:Normal (tachycardia ), ABDOMEN:Normal, MSK:Normal, SKIN:Normal laboratory and microbiology Laboratory Tests 07/27/24 05:56 Test 07/27/24 05:56 Range/Units Serum Glucose 114 H 74-106 mg/dL Problem List/Assessment/Plan Problem List/Assessment/Plan NSTEMI, rule out coronary artery disease. Ruled out pulmonary embolism. Hypertension. Hyperlipidemia. Severe right hip osteoarthritis status post total right hip replacement. Rheumatoid arthritis. Fatty liver disease. Obesity. Plan/Recommendation Continued all current supportive medical care. Patient has been seen by Vick Alexandre NP on my behalf, him and I discussed the plan with the patient. Transthoracic echocardiogram reveals EF 60% Chest pain protocol. HEART score: 4 points (moderate). KEVIN score: 2 points. Close Cardiac surveillance. CT angio negative for PE. Given that the patient experienced chest pain and had a up trend in troponin level, we offered the patient a coronary angiogram with left heart catheterization. Patient continues to want to think about it. Patient let known that if she feels she does not want it now she can always follow up outpatient for ischemic workup, spoke about risks and benefits with possible [place], arrhythmias, up to . Patient verbalized understanding of risks. If patient decides she does not want angiogram at this time may discharge from cardiology standpoint and follow up outpatient. Continue aspirin and statin. Continue with medical management at this time. Additional plan as per the hospital course. Plan discussed with: Patient Dietary Evaluation Review Comments: 1) Add cardiac restriction to 60g [facility] diet order. 2) Refer to [facility] for weight management Expected Outcomes/Goals: 3) Continue plan of care 1. appetite and labs to improve 2. f/u in 3-5 days Date of Service: Jul 29, 2024 Billing Provider: LU COLEMAN MD Cardiology Common Codes: [id number] HOSP CARE(High LU COLEMAN MD Jul 29, 2024 15:39
[2024-07-30] VITALS (7 sets, daily range): BP systolic 101–137; BP diastolic 61–74; PULSE 78–96; RESP 16–20; TEMP 98–98.9; O2SAT 94–99
--- NOTE | 2024-07-30 10:14 | DVHPN2 ---
Consult Progress Note Objective vital signs Vital Sign Date Time Temp Pulse Resp B/P (MAP) Pulse Ox O2 Delivery O2 Flow Rate FiO2 07/30/24 08:00 88 07/30/24 07:54 16 96 Room Air* 0 21 07/30/24 05:00 98.1 122/70 (87) 98.1 Total Intake and Output 07/29/24 07/29/24 07/30/24 15:00 23:00 07:00 Intake Total 50 ml 960 ml 730 ml Balance 50 ml 960 ml 730 ml medications Current Medications Medications Dose Ordered Sig/Shanw Route Start Time Stop Time Status Last Admin Dose Admin Albuterol 90 mcg PRN IN 07/24/24 11:15 Cancel Atorvastatin Calcium 20 mg HS PO 07/24/24 22:00 07/29/24 21:26 20 MG Gemfibrozil 600 mg HS PO 07/24/24 22:00 07/29/24 21:26 600 MG Loratadine 10 mg DAILY PO 07/25/24 10:00 07/30/24 09:03 10 MG Gabapentin 600 mg HS PO 07/24/24 22:00 07/29/24 21:27 600 MG Sodium Chloride 10 ml Q8HR IV 07/24/24 14:00 07/30/24 05:13 10 ML Oxycodone/ Acetaminophen 1 tab Q4HP PRN PO 07/24/24 11:15 07/29/24 22:53 1 TAB Docusate Sodium 100 mg Q12HR PO 07/24/24 22:00 07/30/24 09:03 100 MG Enoxaparin Sodium 40 mg DAILY SC 07/25/24 10:00 07/30/24 09:03 40 MG Nitroglycerin 0.4 mg Q5MINP PRN SL 07/24/24 11:15 Morphine Sulfate 2 mg Q30M PRN IV 07/24/24 11:15 Cefepime HCl 50 ml @ 12.5 mls/hr DAILY IV 07/25/24 10:00 07/30/24 09:02 12.5 MLS/HR Dextrose 50 ml UD PRN IV 07/24/24 11:15 Ondansetron HCl 4 mg Q4HP PRN IV 07/26/24 10:45 Morphine Sulfate 2 mg Q4HPRN PRN IV 07/26/24 10:45 07/27/24 21:17 2 MG Pantoprazole Sodium 40 mg DAILY@0600 PO 07/28/24 06:00 07/30/24 05:17 40 MG Aspirin 81 mg DAILY PO 07/28/24 10:00 07/30/24 09:03 81 MG laboratory and microbiology Laboratory Tests 07/27/24 05:56 Test 07/27/24 05:56 Range/Units Serum Glucose 114 H 74-106 mg/dL Problem List/Assessment/Plan Problem List/Assessment/Plan Problem List/Assessment/Plan NSTEMI, rule out coronary artery disease Ruled out pulmonary embolism Hypertension Hyperlipidemia 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 Graff): * Transthoracic echocardiogram reveals EF 60% * Chest pain protocol * HEART score: 4 points (moderate) * KEVIN score: 2 points * Close Cardiac surveillance Case Discussed with Dr. Graff. CT angio negative for PE. Given that the patient experienced chest pain and had a up trend in troponin level, we offered the patient a coronary angiogram with left heart catheterization. Patient let known that if she feels she does not want it now she can always follow up outpatient for ischemic workup if she changes her mind, spoke about risks and benefits with possible [place], arrhythmias, up to . Patient verbalized understanding of risks. Patient decided that she wants to go ahead and follow through and have angiogram done. NPO after midnight. Continue aspirin and statin. Continue with medical management at this time. Thank you for allowing us to care for this patient. Please call with any questions or concerns. This medical document was created using an electronic medical record system with voice recognition software and computerized dictation system. Although this document has been carefully reviewed, there might still be some phonetic and typographical errors. Occasional wrong-word or ``sound-alike substitutions may have occurred due to the inherent limitations of voice recognition software. These areas are purely typographical due to imperfections of the software programs and do not reflect any compromise in the patient's medical care. Please read the chart carefully and recognize, using context, where these substitutions have occurred. Thank you for allowing me to participate in the management of this patient. Plan discussed with: Patient Dietary Evaluation Review Comments: 1) Add cardiac restriction to [facility]g [facility] diet order. 2) Refer to [facility] for weight management Expected Outcomes/Goals: 3) Continue plan of care 1. appetite and labs to improve 2. f/u in 3-5 days Date of Service: Jul 30, 2024 Billing Provider: NAWAF SCHMIDT Common Visit Codes: [id number] INP/OBS CARE(HIGH) NAWAF SCHMIDT Jul 30, 2024 10:14
[2024-07-30 12:19] LABS: INR 1.06 (0.9-1.15); Partial Thromboplastin Time 27.1 SEC (24.5-34.5); Prothrombin Time 11.2 sec (9.3-11.8)
--- NOTE | 2024-07-30 19:28 | DVHPN2 ---
Subjective in bed resting, daughter at bedside, discussed about care plan Changes from previous H/P or p: No Changes Objective Vitals Vital Signs Date Time Temp Pulse Resp B/P (MAP) Pulse Ox O2 Delivery O2 Flow Rate FiO2 07/30/24 13:00 98.1 78 16 101/61 (74) 96 98.1 07/30/24 07:54 Room Air* 0 21 Intake/Output Intake and Output 07/30/24 05:00 Intake Total 1740 ml Balance 1740 ml Intake Oral 1690 ml IV Total 50 ml # Voids 6 General Appearance: Alert, Oriented X3 HEENT: Atraumatic Lungs: Clear to auscultation Medications Current Medications Medications Dose Ordered Sig/Shawn Route Start Time Stop Time Status Last Admin Dose Admin Albuterol 90 mcg PRN IN 07/24/24 11:15 Cancel Atorvastatin Calcium 20 mg HS PO 07/24/24 22:00 07/29/24 21:26 20 MG Gemfibrozil 600 mg HS PO 07/24/24 22:00 07/29/24 21:26 600 MG Loratadine 10 mg DAILY PO 07/25/24 10:00 07/30/24 09:03 10 MG Gabapentin 600 mg HS PO 07/24/24 22:00 07/29/24 21:27 600 MG Sodium Chloride 10 ml Q8HR IV 07/24/24 14:00 07/30/24 14:00 10 ML Oxycodone/ Acetaminophen 1 tab Q4HP PRN PO 07/24/24 11:15 07/30/24 10:25 1 TAB Docusate Sodium 100 mg Q12HR PO 07/24/24 22:00 07/30/24 09:03 100 MG Nitroglycerin 0.4 mg Q5MINP PRN SL 07/24/24 11:15 Morphine Sulfate 2 mg Q30M PRN IV 07/24/24 11:15 Cefepime HCl 50 ml @ 12.5 mls/hr DAILY IV 07/25/24 10:00 07/30/24 09:02 12.5 MLS/HR Dextrose 50 ml UD PRN IV 07/24/24 11:15 Ondansetron HCl 4 mg Q4HP PRN IV 07/26/24 10:45 Morphine Sulfate 2 mg Q4HPRN PRN IV 07/26/24 10:45 07/27/24 21:17 2 MG Pantoprazole Sodium 40 mg DAILY@0600 PO 07/28/24 06:00 07/30/24 05:17 40 MG Aspirin 81 mg DAILY PO 07/28/24 10:00 07/30/24 09:03 81 MG Enoxaparin Sodium 40 mg DAILY SC 08/01/24 10:00 Laboratory Results Laboratory Tests 07/27/24 05:56 Coagulation Test 07/30/24 11:45 Prothrombin Time 11.2 sec (9.3-11.8) Prothrombin Time INR 1.06 (0.9-1.15) Activated Partial Thromboplast Time 27.1 SEC (24.5-34.5) Urinalysis Test 07/26/24 14:30 Urine Color Light-yellow (Yellow) Urine Clarity Clear (Clear) Urine pH 6.0 (5.0-9.0) Urine Specific [place] 1.013 (1.001-1.035) Urine Protein Negative (Negative) Urine Ketones Negative (Negative) Urine Blood Negative /uL (Negative) Urine Nitrite Negative (Negative) Urine Bilirubin Negative (Negative) Urine Urobilinogen Normal mg/dL (Negative) Urine Leukocyte Esterase Negative /uL (Negative) Urine RBC <1 /hpf (0 - 4) Urine Microscopic WBC 4 /HPF (0-5) Urine Squamous Epithelial Cells Few /hpf (<5) Urine Bacteria Few /hpf (None Seen) H Urine Mucus Few (None Seen) Urine Glucose Normal mg/dL (Normal) Assessment/Plan Assessment/Plan s/p hip surgery HTN Elevated troponins As per cardiology will take to angio tomorrow continue home meds Plan discussed with: Patient Date of Service: Jul 30, 2024 Billing Provider: UZAIR JAUREGUI MD Common Visit Codes: [id number] INP/OBS CARE(HIGH) UZAIR JAUREGUI MD Jul 30, 2024 19:28
--- NOTE | 2024-07-30 22:30 | DVHPN2 ---
Consult Progress Note Subjective Patient reports: No new complaints Other Systems: Patient was seen and evaluated in follow up. Patient is without any complaints. Patient is planned for angiogram. Consent obtained. Coagulation panel is WNL. Telemtr reviewed. Objective vital signs Vital Sign Date Time Temp Pulse Resp B/P (MAP) Pulse Ox O2 Delivery O2 Flow Rate FiO2 07/30/24 13:00 98.1 78 16 101/61 (74) 96 98.1 07/30/24 07:54 Room Air* 0 21 Total Intake and Output 07/29/24 07/29/24 07/30/24 15:00 23:00 07:00 Intake Total 50 ml 960 ml 730 ml Balance 50 ml 960 ml 730 ml medications Current Medications Medications Dose Ordered Sig/Shawn Route Start Time Stop Time Status Last Admin Dose Admin Albuterol 90 mcg PRN IN 07/24/24 11:15 Cancel Atorvastatin Calcium 20 mg HS PO 07/24/24 22:00 07/29/24 21:26 20 MG Gemfibrozil 600 mg HS PO 07/24/24 22:00 07/29/24 21:26 600 MG Loratadine 10 mg DAILY PO 07/25/24 10:00 07/30/24 09:03 10 MG Gabapentin 600 mg HS PO 07/24/24 22:00 07/29/24 21:27 600 MG Sodium Chloride 10 ml Q8HR IV 07/24/24 14:00 07/30/24 05:13 10 ML Oxycodone/ Acetaminophen 1 tab Q4HP PRN PO 07/24/24 11:15 07/30/24 10:25 1 TAB Docusate Sodium 100 mg Q12HR PO 07/24/24 22:00 07/30/24 09:03 100 MG Nitroglycerin 0.4 mg Q5MINP PRN SL 07/24/24 11:15 Morphine Sulfate 2 mg Q30M PRN IV 07/24/24 11:15 Cefepime HCl 50 ml @ 12.5 mls/hr DAILY IV 07/25/24 10:00 07/30/24 09:02 12.5 MLS/HR Dextrose 50 ml UD PRN IV 07/24/24 11:15 Ondansetron HCl 4 mg Q4HP PRN IV 07/26/24 10:45 Morphine Sulfate 2 mg Q4HPRN PRN IV 07/26/24 10:45 07/27/24 21:17 2 MG Pantoprazole Sodium 40 mg DAILY@0600 PO 07/28/24 06:00 07/30/24 05:17 40 MG Aspirin 81 mg DAILY PO 07/28/24 10:00 07/30/24 09:03 81 MG Enoxaparin Sodium 40 mg DAILY SC 08/01/24 10:00 Examination: GENERAL:Normal, LUNGS:Normal, CVS:Normal, ABDOMEN:Normal laboratory and microbiology Laboratory Tests 07/27/24 05:56 Test 07/27/24 05:56 Range/Units Serum Glucose 114 H 74-106 mg/dL Problem List/Assessment/Plan Problem List/Assessment/Plan NSTEMI, rule out coronary artery disease. Ruled out pulmonary embolism. Hypertension. Hyperlipidemia. Severe right hip osteoarthritis status post total right hip replacement. Rheumatoid arthritis. Fatty liver disease. Obesity. Plan/Recommendation Continued all current supportive medical care. Patient has been seen by Vick Alexandre SHEET METAL JOURNEYMAN on my behalf, him and I discussed the plan with the patient. Transthoracic echocardiogram reveals EF 60% Chest pain protocol. HEART score: 4 points (moderate). KEVIN score: 2 points. Close Cardiac surveillance. CT angio negative for PE. Given that the patient experienced chest pain and had a up trend in troponin level, we offered the patient a coronary angiogram with left heart catheterization. Spoke about risks and benefits with possible WI, arrhythmias, up to . Patient verbalized understanding of risks. Patient decided that she wants to go ahead and follow through and have angiogram done. NPO after midnight. Continue aspirin and statin. Continue with medical management at this time. Additional plan as per the hospital course. Plan discussed with: Patient Dietary Evaluation Review Comments: 1) Add cardiac restriction to 60g [facility] diet order. 2) Refer to SNF RD for weight management Expected Outcomes/Goals: 3) Continue plan of care 1. appetite and labs to improve 2. f/u in 3-5 days Date of Service: Jul 30, 2024 Billing Provider: LU COLEMAN MD Cardiology Common Codes: [id number] HOSP CARE(High LU COLEMAN MD Jul 30, 2024 16:35
[2024-07-31] VITALS (18 sets, daily range): BP systolic 129–154; BP diastolic 53–98; PULSE 89–103; RESP 12–20; TEMP 97.6–98.7; O2SAT 96–100
--- NOTE | 2024-07-31 11:24 | DVHPN2 ---
Progress Note Date Seen: Jul 31, 2024 Medical Necessity Reason Pt with a Central, PICC or Fol: No Subjective Patient reports: No new complaints Review of Systems: HEENT:Normal, CVS:Normal, RESPIRATORY:Normal, GI:Normal, :Normal, MSK:Normal, NEURO:Normal Objective vital signs Vital Sign Date Time Temp Pulse Resp B/P (MAP) Pulse Ox O2 Delivery O2 Flow Rate FiO2 07/31/24 08:30 98.1 91 16 148/75 (99) 97 98.1 07/31/24 07:57 Room Air* 0 21 Total Intake and Output 07/30/24 07/30/24 07/31/24 15:00 23:00 07:00 Intake Total 200 ml 650 ml 350 ml Output Total 0 ml 700 ml Balance 200 ml 650 ml -350 ml medications Current Medications Medications Dose Ordered Sig/Shawn Route Start Time Stop Time Status Last Admin Dose Admin Albuterol 90 mcg PRN IN 07/24/24 11:15 Cancel Atorvastatin Calcium 20 mg HS PO 07/24/24 22:00 07/30/24 22:10 20 MG Gemfibrozil 600 mg HS PO 07/24/24 22:00 07/30/24 22:10 600 MG Loratadine 10 mg DAILY PO 07/25/24 10:00 07/31/24 09:01 10 MG Gabapentin 600 mg HS PO 07/24/24 22:00 07/29/24 21:27 600 MG Sodium Chloride 10 ml Q8HR IV 07/24/24 14:00 07/31/24 05:41 10 ML Oxycodone/ Acetaminophen 1 tab Q4HP PRN PO 07/24/24 11:15 07/31/24 09:02 1 TAB Docusate Sodium 100 mg Q12HR PO 07/24/24 22:00 07/31/24 09:01 100 MG Nitroglycerin 0.4 mg Q5MINP PRN SL 07/24/24 11:15 Morphine Sulfate 2 mg Q30M PRN IV 07/24/24 11:15 Cefepime HCl 50 ml @ 12.5 mls/hr DAILY IV 07/25/24 10:00 07/31/24 09:00 12.5 MLS/HR Dextrose 50 ml UD PRN IV 07/24/24 11:15 Ondansetron HCl 4 mg Q4HP PRN IV 07/26/24 10:45 Morphine Sulfate 2 mg Q4HPRN PRN IV 07/26/24 10:45 07/31/24 00:44 2 MG Pantoprazole Sodium 40 mg DAILY@0600 PO 07/28/24 06:00 07/31/24 05:38 40 MG Aspirin 81 mg DAILY PO 07/28/24 10:00 07/30/24 09:03 81 MG Enoxaparin Sodium 40 mg DAILY SC 08/01/24 10:00 Examination: GENERAL:Normal, HEENT:Normal, NECK:Normal, LUNGS:Normal, CVS:Normal, ABDOMEN:Normal, MSK:Normal, MSK:Abnormal (right hip dressing), SKIN:Normal, NEURO:Normal, :Normal laboratory and microbiology Laboratory Tests 07/27/24 05:56 Test 07/27/24 05:56 Range/Units Serum Glucose 114 H 74-106 mg/dL Problem List/Assessment/Plan Problem List/Assessment/Plan * Hypertension: dc benazepril * Hyperlipidemia. * Fatty liver. * Chest pain/nausea/nstemi: c angio today * ?pneumonia: cefepime, chest xray * Rheumatoid arthritis, for which she is regularly on methotrexate. * Status post right hip surgery for degenerative joint disease of the hip. The patient will be placed on pain medication and receive physical therapy. Advance care planning, the patient is a full code- time spent 19 mins Plan discussed with: Other (rn) Dietary Evaluation Review Comments: 1) Add cardiac restriction to 60g [facility] diet order. 2) Refer to SNF RD for weight management Expected Outcomes/Goals: 3) Continue plan of care 1. appetite and labs to improve 2. f/u in 3-5 days Date of Service: Jul 31, 2024 Billing Provider: GIOVANY HAHN MD Common Visit Codes: [id number] INP/OBS CARE(HIGH) GIOVANY HAHN MD Jul 31, 2024 11:24
[2024-07-31] MEDS: IODIXANOL 320MG/ML 100ML BTL IV ONE (12:21)
[2024-07-31] MEDS: fentaNYL CITRATE 100 MCG/2 ML VL ONE (12:52)
[2024-07-31] MEDS: ANGIOMAX 250 MG VIAL IV ONE (12:52)
[2024-07-31] MEDS: VERAPAMIL 2.5MG/ML INJ 2ML VIAL IV ONE (12:52)
[2024-07-31] MEDS: LIDOCAINE 2%HCL (LOCAL ANESTH.) INJ 20ML MDV ONE (12:53)
[2024-07-31] MEDS: SODIUM CHL 0.9% 50 ML ONE (12:53)
[2024-07-31] MEDS: MIDAZOLAM HCL 2MG/2ML 2ml VIAL (1mg/ml) ONE (12:53)
[2024-07-31] MEDS: NITROGLYCERIN 0.4MG/DOSE SPRAY 4.9GM ONE (13:36)
--- NOTE | 2024-07-31 14:00 | DVHPN2 ---
Progress Note Date Seen: Jul 31, 2024 Medical Necessity Reason Pt with a Central, PICC or Fol: No Subjective Patient reports: Feels better Other Systems: sp cath and pci Objective vital signs Vital Sign Date Time Temp Pulse Resp B/P (MAP) Pulse Ox O2 Delivery O2 Flow Rate FiO2 07/31/24 08:30 98.1 91 16 148/75 (99) 97 98.1 07/31/24 07:57 Room Air* 0 21 Total Intake and Output 07/30/24 07/30/24 07/31/24 15:00 23:00 07:00 Intake Total 200 ml 650 ml 350 ml Output Total 0 ml 700 ml Balance 200 ml 650 ml -350 ml medications Current Medications Medications Dose Ordered Sig/Shawn Route Start Time Stop Time Status Last Admin Dose Admin Albuterol 90 mcg PRN IN 07/24/24 11:15 Cancel Atorvastatin Calcium 20 mg HS PO 07/24/24 22:00 07/30/24 22:10 20 MG Gemfibrozil 600 mg HS PO 07/24/24 22:00 07/30/24 22:10 600 MG Loratadine 10 mg DAILY PO 07/25/24 10:00 07/31/24 09:01 10 MG Gabapentin 600 mg HS PO 07/24/24 22:00 07/29/24 21:27 600 MG Sodium Chloride 10 ml Q8HR IV 07/24/24 14:00 07/31/24 05:41 10 ML Oxycodone/ Acetaminophen 1 tab Q4HP PRN PO 07/24/24 11:15 07/31/24 09:02 1 TAB Docusate Sodium 100 mg Q12HR PO 07/24/24 22:00 07/31/24 09:01 100 MG Nitroglycerin 0.4 mg Q5MINP PRN SL 07/24/24 11:15 Morphine Sulfate 2 mg Q30M PRN IV 07/24/24 11:15 Cefepime HCl 50 ml @ 12.5 mls/hr DAILY IV 07/25/24 10:00 07/31/24 09:00 12.5 MLS/HR Dextrose 50 ml UD PRN IV 07/24/24 11:15 Ondansetron HCl 4 mg Q4HP PRN IV 07/26/24 10:45 Morphine Sulfate 2 mg Q4HPRN PRN IV 07/26/24 10:45 07/31/24 00:44 2 MG Pantoprazole Sodium 40 mg DAILY@0600 PO 07/28/24 06:00 07/31/24 05:38 40 MG Aspirin 81 mg DAILY PO 07/28/24 10:00 07/30/24 09:03 81 MG Enoxaparin Sodium 40 mg DAILY SC 08/01/24 10:00 Examination: GENERAL:Abnormal, HEENT:Abnormal, LUNGS:Abnormal, CVS:Abnormal, ABDOMEN:Abnormal laboratory and microbiology Laboratory Tests 07/27/24 05:56 Test 07/27/24 05:56 Range/Units Serum Glucose 114 H 74-106 mg/dL Problem List/Assessment/Plan Problem List/Assessment/Plan nstemi post op ortho surgery htn hl ckd s/p pci to 85% mid LAD heavily calcified stenosis cont dapt x 1 year statin outpt fu with cardiology Plan discussed with: Patient My Orders My Orders Orders - JACKELYN BHAT MD Procedure Category Date Status Time Cl Left Heart Cath CL 07/31/24 Taken 07:39 Dietary Evaluation Review Comments: 1) [facility] 2) Refer to SNF RD for weight management Expected Outcomes/Goals: 3) Continue plan of care 1. appetite and labs to improve 2. f/u in 3-5 days Date of Service: Jul 31, 2024 Billing Provider: JACKELYN BHAT MD Common Visit Codes: NOT BILLABLE JACKELYN BHAT MD Jul 31, 2024 14:00
--- NOTE | 2024-07-31 14:05 | DVHOP2 ---
Operative Report Operative Report CARDIAC ASSISTANT GOLF COURSE SUPERINTENDENT PROCEDURE REPORT [place], [place] Date of Service: 07/31/24 Powder Line Repairer: Earle Bhat MD PROCEDURES PERFORMED: Coronary angiogram, left heart catheterization, conscious sedation administration and supervision, less than 15 minutes conscious sedation 15-30 mins, 31-45 mins ; fluoroscopy use and interpretation. US guided vascular access to R DOCK COORDINATOR , PTCA 1 vessel, PCI 1 vessel, INtravsascular lithotripsy 1 vessel, hemostasis closure device PREOPERATIVE DIAGNOSES: NSTEM POSTOP DIAGNOSIS: NSTEMI DESCRIPTION OF PROCEDURE: The patient or appropriate family signed informed consent understanding the risks, benefits and alternatives of the procedure, th ey wished to proceed. The patient was brought to the cardiac experimental machining lab manager in n[place]p.o[place] state. The patient was prepped in a sterile fashion. Sedation was used per cardiac cath protocol. I administered 2 mL of 2% lidocaine to the right wrist. With an antegrade front wall puncture. I cannulated the right radial artery and placed a 6-Beninese Glidesheath slender. Next, an intra-arterial spasmolytic was administered. Immediately i was concernd for spasm given small nature of vessel even though i got access with 1 stick. with glide wire 5F catheter simi chauhan so used 4 F JL4 and JR4 . used for coronary angiogram and LVEDP measurement and pressure pullback. At the completion of procedure, all guides and wires were removed, and there were no immediate complications. FINDINGS: RCA: Moderate vessel off the right sinus of Valsalva, there is no severe flow limiting stenosis. LEFT MAIN: Moderate size left main, it bifurcates into LAD and circumflex. CIRCUMFLEX: Moderate caliber vessel coming off the left main with no flow limiting stenosis. mild distal plaque LAD: LAD is a moderate caliber vessel coming of the left main. mid LAD has a napkin ring heavily calcified 85% focal stenosis INTERVENTION : 6F guide vangie cross given spasm and use of intravessel nitro and pain sedation given small vessel. therefore, i turned my attention to groin approach and 8 cc of 1% lidocaine given. I accesed R DOCK COORDINATOR with 1 stick using US guidance and placed 6F sheath. then angio showed appropriate arteriotomy site. then with XB 3.5 guide (3.0 was too small) i cannulated the LM and angiomax bolus and gtt used. i wired with bmw to distal lad . vessel was very calcified . i ballooned using IVL shockwave 3.0 x 12 mm with 40 pulses delivered at 3 -4atms . then I stented using a 3.0 x 15 mm kurt juan josé up to 16 atms with 2 inflations . then stent balloon removed and angio showed 0 % stenosis. CONCLUSIONS: 1. successful IVL and pci of mid LAD 85% lesion with JUAN JOSÉ PLAN: Aggressive risk factor modification and medical management for the patient. DAPT x 1 year uninterrupted EARLE BHAT MD Jul 31, 2024 14:05
[2024-07-31] MEDS: hydrALAZINE HCL 20 MG/ML VL ONE (14:17)
[2024-07-31] MEDS: TICAGRELOR 90 MG TAB ONE (14:17)
[2024-07-31 16:33] LABS: Basophils # (auto) 0.1 10 ^3/uL (0-0.2); Basophils % (auto) 1.1 % (0.0-2.0); Eosinophils # (auto) 0.1 10 ^3/uL (0-0.8); Eosinophils % (auto) 1.7 % (0.0-7.0); Hematocrit 34.3 % (36.0-46.0); Hemoglobin 11.6 g/dL (12.2-16.2); Lymphocytes # (auto) 1.2 10 ^3/uL (0.4-5.4); Lymphocytes % (auto) 18.4 % (10.0-50.0); Mean Corpuscular Hemoglobin 32.6 pg (28.0-32.0); Mean Corpuscular Hgb Conc. 33.7 g/dL (32.0-36.0); Mean Corpuscular Volume 96.6 fL (80.0-100.0); Monocytes # (auto) 0.5 10 ^3/uL (0-1.3); Monocytes % (auto) 8.4 % (0.0-12.0); Neutrophils # (auto) 4.5 10 ^3/uL (1.6-8.6); Neutrophils % (auto) 70.4 % (37.0-80.0); Platelet Count (auto) 404 10^3/uL (140-450); Red Blood Cells 3.55 10^6/uL (4.0-5.20); Red Cell Distribution Width 13.2 % (11.8-14.3); White Blood Cell 6.4 10^3/uL (4.4-10.8)
[2024-07-31 17:05] LABS: Chloride 103 mmol/L (98-107); Potassium 3.7 mmol/L (3.5-5.1); Sodium 137 mmol/L (136-145)
[2024-07-31 17:06] LABS: Anion Gap 12 (5-15); Calcium 9.7 mg/dL (8.7-10.4); Carbon Dioxide 22 mmol/L (20-31)
[2024-07-31 17:11] LABS: Blood Urea Nitrogen 17 mg/dL (9-23)
[2024-07-31 17:30] LABS: Glucose 144 mg/dL (74-106)
[2024-07-31] MEDS: CLOPIDOGREL BISULFATE 75 MG TAB PO ONE (21:45)
[2024-08-01] VITALS (8 sets, daily range): BP systolic 124–151; BP diastolic 62–87; PULSE 89–105; RESP 17–18; TEMP 98–98.7; O2SAT 95–99
--- NOTE | 2024-08-01 06:49 | DVH ---
EXAM: XR Chest, 1 View CLINICAL INDICATION: pneumonia TECHNIQUE: Frontal view of the chest. COMPARISON: None FINDINGS: LUNGS AND PLEURAL SPACES: Left basilar atelectasis or pneumonia. Pulmonary venous congestion. No pneumothorax. HEART: Unremarkable. No cardiomegaly. MEDIASTINUM: Unremarkable. Normal mediastinal contour. BONES/JOINTS: Unremarkable. No acute fracture. OTHER FINDINGS: . None. . .. IMPRESSION: 1. Left basilar atelectasis or pneumonia. 2. Pulmonary venous congestion.
[2024-08-01 07:12] LABS: Albumin 4.2 g/dL (3.2-4.8); Anion Gap 10 (5-15); BUN/Creatinine Ratio 16.9 (10.0-20.0); Basophils # (auto) 0 10 ^3/uL (0-0.2); Basophils % (auto) 0.6 % (0.0-2.0); Bilirubin, Total 0.6 mg/dL (0.2-1.0); Blood Urea Nitrogen 14 mg/dL (9-23); Carbon Dioxide 24 mmol/L (20-31); Chloride 103 mmol/L (98-107); Eosinophils # (auto) 0.2 10 ^3/uL (0-0.8); Eosinophils % (auto) 3.1 % (0.0-7.0); Hematocrit 34.1 % (36.0-46.0); Hemoglobin 11.5 g/dL (12.2-16.2); Lymphocytes # (auto) 1.3 10 ^3/uL (0.4-5.4); Lymphocytes % (auto) 17.3 % (10.0-50.0); Mean Corpuscular Hemoglobin 33.2 pg (28.0-32.0); Mean Corpuscular Hgb Conc. 33.8 g/dL (32.0-36.0); Mean Corpuscular Volume 98.2 fL (80.0-100.0); Monocytes # (auto) 0.7 10 ^3/uL (0-1.3); Monocytes % (auto) 9.8 % (0.0-12.0); Neutrophils # (auto) 5.1 10 ^3/uL (1.6-8.6); Neutrophils % (auto) 69.2 % (37.0-80.0); Nucleated Red Blood Cells % 0.1 %; Platelet Count (auto) 397 10^3/uL (140-450); Potassium 3.9 mmol/L (3.5-5.1); Red Blood Cells 3.47 10^6/uL (4.0-5.20); Red Cell Distribution Width 12.9 % (11.8-14.3); Sodium 137 mmol/L (136-145); Total Protein 6.5 g/dL (5.7-8.2); White Blood Cell 7.4 10^3/uL (4.4-10.8)
[2024-08-01 07:19] LABS: Alanine Aminotransferase 78 U/L (7-40); Alkaline Phosphatase 266 U/L (46-116); Aspartate Aminotransferase 88 U/L (13-40); Calcium 10.5 mg/dL (8.7-10.4); Glucose 121 mg/dL (74-106)
[2024-08-01] MEDS: CLOPIDOGREL BISULFATE 75 MG TAB PO SCH (09:46)
[2024-08-01] MEDS: ENOXAPARIN SOD 40 MG/0.4 ML SYRINGE SC SCH (09:48)
--- NOTE | 2024-08-01 11:23 | DVHPN2 ---
Progress Note Date Seen: Aug 01, 2024 Medical Necessity Reason Pt with a Central, PICC or Fol: No Subjective Patient reports: No new complaints Review of Systems: HEENT:Normal, CVS:Normal, RESPIRATORY:Normal, GI:Normal, :Normal, MSK:Normal, NEURO:Normal Objective vital signs Vital Sign Date Time Temp Pulse Resp B/P (MAP) Pulse Ox O2 Delivery O2 Flow Rate FiO2 08/01/24 09:00 98.2 95 17 151/75 (100) 99 98.2 07/31/24 20:30 Nasal Cannula* 2 28 Total Intake and Output 07/31/24 07/31/24 08/01/24 15:00 23:00 07:00 Intake Total 50 ml 400 ml Balance 50 ml 400 ml medications Current Medications Medications Dose Ordered Sig/Shawn Route Start Time Stop Time Status Last Admin Dose Admin Albuterol 90 mcg PRN IN 07/24/24 11:15 Cancel Atorvastatin Calcium 20 mg HS PO 07/24/24 22:00 07/31/24 21:45 20 MG Gemfibrozil 600 mg HS PO 07/24/24 22:00 07/31/24 21:45 600 MG Loratadine 10 mg DAILY PO 07/25/24 10:00 08/01/24 09:47 10 MG Gabapentin 600 mg HS PO 07/24/24 22:00 07/29/24 21:27 600 MG Sodium Chloride 10 ml Q8HR IV 07/24/24 14:00 08/01/24 05:53 10 ML Oxycodone/ Acetaminophen 1 tab Q4HP PRN PO 07/24/24 11:15 07/31/24 14:34 1 TAB Docusate Sodium 100 mg Q12HR PO 07/24/24 22:00 08/01/24 09:46 100 MG Nitroglycerin 0.4 mg Q5MINP PRN SL 07/24/24 11:15 Morphine Sulfate 2 mg Q30M PRN IV 07/24/24 11:15 Cefepime HCl 50 ml @ 12.5 mls/hr DAILY IV 07/25/24 10:00 07/31/24 09:00 12.5 MLS/HR Dextrose 50 ml UD PRN IV 07/24/24 11:15 Ondansetron HCl 4 mg Q4HP PRN IV 07/26/24 10:45 Morphine Sulfate 2 mg Q4HPRN PRN IV 07/26/24 10:45 07/31/24 21:46 2 MG Pantoprazole Sodium 40 mg DAILY@0600 PO 07/28/24 06:00 08/01/24 05:53 40 MG Aspirin 81 mg DAILY PO 07/28/24 10:00 08/01/24 09:45 81 MG Enoxaparin Sodium 40 mg DAILY SC 08/01/24 10:00 08/01/24 09:48 40 MG Clopidogrel Bisulfate 75 mg DAILY PO 08/01/24 10:00 08/01/24 09:46 75 MG Examination: GENERAL:Normal, HEENT:Normal, NECK:Normal, LUNGS:Normal, CVS:Normal, ABDOMEN:Normal, MSK:Normal, MSK:Abnormal (RIGHT HIP DRESSING), SKIN:Normal, NEURO:Normal, :Normal laboratory and microbiology Laboratory Tests 08/01/24 06:24 Test 08/01/24 06:24 Range/Units Serum Glucose 121 H 74-106 mg/dL Problem List/Assessment/Plan Problem List/Assessment/Plan * Hypertension: dc benazepril * Hyperlipidemia. * Fatty liver. * Chest pain/nausea/nstemi: c angio, lad stent * elevated lft: usg, lasix iv * Rheumatoid arthritis, for which she is regularly on methotrexate. * Status post right hip surgery for degenerative joint disease of the hip. The patient will be placed on pain medication and receive physical therapy. Advance care planning, the patient is a full code- time spent 19 mins Plan discussed with: Patient, Daughter My Orders My Orders Orders - GIOVANY HAHN MD Procedure Category Date Status Time Chest Portable XY 08/01/24 Resulted 06:00 Dietary Evaluation Review Comments: 1) Add cardiac restriction to 60g [facility] diet order. 2) Refer to SNF RD for weight management Expected Outcomes/Goals: 3) Continue plan of care 1. appetite and labs to improve 2. f/u in 3-5 days Date of Service: Aug 01, 2024 Billing Provider: GIOVANY HAHN MD Common Visit Codes: [id number] INP/OBS CARE(HIGH) GIOVANY HAHN MD Aug 01, 2024 11:23
[2024-08-01] MEDS ORDERED: traMADol HCL 50 MG TAB PO PRN (11:30)
[2024-08-01] MEDS: POTASSIUM CHL 20 Meq TABLET PO ONE (12:06)
[2024-08-01] MEDS: FUROSEMIDE 20 MG/2 ML VIAL IV ONE (12:07)
--- NOTE | 2024-08-01 15:06 | DVH ---
EXAM: US LIVER CLINICAL HISTORY: ELEVATED LIVER ENZYMES TECHNIQUE: Grayscale and limited color flow doppler ultrasound of the right upper quadrant is perfor med. COMPARISON: None Findings: Liver measures 13.8 cm in length with heterogeneous echotexture and contour. No evidence of focal he patic lesions or intra- or extrahepatic ductal dilatation. Common bile duct measures 0.4 cm in diamet er. Normal hepatopedal flow noted within the portal vein. No perihepatic free fluid is noted. Cholecystectomy. Negative sonographic Michelle's sign. Pancreas only partially visualized due to overlying bowel gas but is otherwise unremarkable . Right kidney measures 9.8 cm with normal contours, echotexture and cortical thickness. No evidence of hydronephrosis, calculi, cystic or solid renal lesions. Partially visualized inferior vena cava unremarkable. Impression: 1. No evidence of acute right upper quadrant abnormalities. 2. Coarsened hepatic echotexture, nonspecific.
[2024-08-01] MEDS: LACTULOSE 20Gm/30ML SOLN PO ONE (16:29)
[2024-08-01] MEDS: POLYETHYLENE GLYCOL 17 GM PWDR PO ONE (16:29)
[2024-08-01] MEDS: FLEET ENEMA(ADULT) 135 ML PR ONE (21:15)
[2024-08-02 01:00] VITALS: BP 126/67; PULSE 109; RESP 18; TEMP 97.9; O2SAT 95
--- NOTE | 2024-08-02 02:18 | DVH ---
Date: 08/01/2024 11:53 PM Examination: XY KUB ABDOMEN SINGLE VIEW History: obstipation Comparison: None TECHNIQUE: Frontal views of the abdomen was obtained. FINDINGS: Gas and stool are noted throughout the colon. The lung bases are unremarkable. Degenerative changes are noted in the bones. The patient is post right hip arthroplasty. IMPRESSION: 1. Nonobstructive bowel gas pattern.
[2024-08-02 05:00] VITALS: BP 122/68; PULSE 86; RESP 18; TEMP 97; O2SAT 95
[2024-08-02 07:04] LABS: Albumin 4.5 g/dL (3.2-4.8); Anion Gap 12 (5-15); Bilirubin, Total 0.6 mg/dL (0.2-1.0); Blood Urea Nitrogen 20 mg/dL (9-23); Calcium 10.4 mg/dL (8.7-10.4); Carbon Dioxide 22 mmol/L (20-31); Chloride 102 mmol/L (98-107); Potassium 3.6 mmol/L (3.5-5.1); Sodium 136 mmol/L (136-145); Total Protein 7.1 g/dL (5.7-8.2)
[2024-08-02 07:25] LABS: Alanine Aminotransferase 64 U/L (7-40); Alkaline Phosphatase 227 U/L (46-116); Aspartate Aminotransferase 50 U/L (13-40); Glucose 155 mg/dL (74-106)
[2024-08-02 08:00] VITALS: PULSE 108
[2024-08-02 09:00] VITALS: BP 120/65; PULSE 107; RESP 15; TEMP 98; O2SAT 93
--- NOTE | 2024-08-02 11:59 | DVHINCON2 ---
GI Consult Consult Note GI consult note Date of Consultation: 08/02/2024 Chief Complaint: Obstipation Referring Physician: Paul APARICIO H&P: 74-year-old female status post right hip surgery for DJD on 07/24/2024 Patient is status post angiogram, now on Lovenox and Plavix Patient was complaining of abdominal pain last night, which has improved at this time. Patient also complains of nausea and vomiting last night, no hematemesis. No nausea or vomiting at this time. Patient had 2-3 bowel movements in the last 12 hours. No melena or red blood in stool Patient SP EGD/colonoscopy more than five years ago, was supposed to follow-up in clinic with Dr. Cheek to schedule these procedures and to follow-up with her liver also. But patient was unable to keep that appointment Past Medical History: HTN, hyperlipidemia, RA Past Surgical History: Total right hip replacement on 07/24/24 Cholecystectomy Tonsillectomy Tubal ligation Social History: NO smoking, drinking ETOH and use of illegal drugs. Family History: Noncontributory Review of Systems: Constitutional: no fever, chill, weight loss HEENT: no eye pain, no hearing loss, no oral lesion, no scleral icterus Heart: no chest pain, no chest pressure Lung: no cough, no dyspnea with exertion Abdomen: see HPI Physical exam: General: NAD, AAOX3 Chest: lung cadet clear to auscultation Heart: RRR, no murmur Abdomen: non-distended, no tenderness to palpation, +BS Labs: Labs Test 08/02/24 05:53 08/01/24 06:24 07/31/24 21:38 07/31/24 14:15 Range/Units Sodium Level 136 136-145 mmol/L Potassium Level 3.6 3.5-5.1 mmol/L Chloride Level 102 98-107 mmol/L Carbon Dioxide Level 22 20-31 mmol/L Anion Gap 12 5-15 Blood Urea Nitrogen 20 9-23 mg/dL Creatinine 1.00 0.550-1.02 mg/dL Glomerular Filtration Rate Calc 58 >90 mL/min BUN/Creatinine Ratio 20.0 10.0-20.0 Serum Glucose 155 H 74-106 mg/dL Calcium Level 10.4 8.7-10.4 mg/dL Total Bilirubin 0.6 0.2-1.0 mg/dL Aspartate Amino Transferase (AST) 50 H 13-40 U/L Alanine Aminotransferase (ALT) 64 H 7-40 U/L Alkaline Phosphatase 227 H 46-116 U/L Total Protein 7.1 5.7-8.2 g/dL Albumin 4.5 3.2-4.8 g/dL White Blood Count 7.4 4.4-10.8 10^3/uL Red Blood Count 3.47 L 4.0-5.20 10^6/uL Hemoglobin 11.5 L 12.2-16.2 g/dL Hematocrit 34.1 L 36.0-46.0 % Mean Corpuscular Volume 98.2 80.0-100.0 fL Mean Corpuscular Hemoglobin 33.2 H 28.0-32.0 pg Mean Corpuscular Hemoglobin Concent 33.8 32.0-36.0 g/dL Red Cell Distribution Width 12.9 11.8-14.3 % Platelet Count 397 140-450 10^3/uL Mean Platelet Volume 7.4 6.9-10.8 fL Neutrophils (%) (Auto) 69.2 37.0-80.0 % Lymphocytes (%) (Auto) 17.3 10.0-50.0 % Monocytes (%) (Auto) 9.8 0.0-12.0 % Eosinophils (%) (Auto) 3.1 0.0-7.0 % Basophils (%) (Auto) 0.6 0.0-2.0 % Neutrophils # (Auto) 5.1 1.6-8.6 10 ^3/uL Lymphocytes # (Auto) 1.3 0.4-5.4 10 ^3/uL Monocytes # (Auto) 0.7 0-1.3 10 ^3/uL Eosinophils # (Auto) 0.2 0-0.8 10 ^3/uL Basophils # (Auto) 0 0-0.2 10 ^3/uL Nucleated Red Blood Cells 0.1 % Troponin I High Sensitivity 260 *H </=34 ng/L POC Glucose 115 H 70-106 mg/dl Test 07/30/24 11:45 07/27/24 19:51 07/26/24 14:30 07/26/24 06:30 Range/Units Prothrombin Time 11.2 9.3-11.8 sec Prothrombin Time INR 1.06 0.9-1.15 Activated Partial Thromboplast Time 27.1 24.5-34.5 SEC D-Dimer, Quantitative 1.79 H 0.0-0.49 mg/L FEU Urine Color Light-yellow Yellow Urine Clarity Clear Clear Urine pH 6.0 5.0-9.0 Urine Specific [place] 1.013 1.001-1.035 Urine Protein Negative Negative Urine Ketones Negative Negative Urine Blood Negative Negative /uL Urine Nitrite Negative Negative Urine Bilirubin Negative Negative Urine Urobilinogen Normal Negative mg/dL Urine Leukocyte Esterase Negative Negative /uL Urine RBC <1 0 - 4 /hpf Urine Microscopic WBC 4 0-5 /HPF Urine Squamous Epithelial Cells Few <5 /hpf Urine Bacteria Few H None Seen /hpf Urine Mucus Few None Seen Urine Glucose Normal Normal mg/dL Hemoglobin A1c 5.7 <5.7 % A1C Imaging: Chest abdominal x-ray IMPRESSION: 1. Nonobstructive bowel gas pattern. Ultrasound liver Impression: 1. No evidence of acute right upper quadrant abnormalities. 2. Coarsened hepatic echotexture, nonspecific. Assessment: Constipation, now multiple bowel movements in the last 12 hours Fatty liver Elevated LFTs Plan: Discussed with Dr. Cheek MiraLaluis a Full liquid diet advance as tolerated Outpatient GI follow-up with next available appointment recommended for possible outpatient plan for EGD colonoscopy as needed Plan discussed with patient and RN Thank you for this consult Date of Service: Aug 02, 2024 Billing Provider: SEYMOUR SANTOS Common Visit Codes: CONSULT ONLY Consultation Codes: [id number] CONSULT <45MIN SEYMOUR SANTOS Aug 02, 2024 11:59
[2024-08-02] MEDS: POLYETHYLENE GLYCOL 17 GM PWDR PO ONE (12:22)
[2024-08-02 13:00] VITALS: BP 104/57; PULSE 102; RESP 17; TEMP 98.1; O2SAT 94
--- NOTE | 2024-08-02 22:59 | DVHDS ---
DATE OF DISCHARGE: 08/02/2024 HISTORY OF PRESENT ILLNESS: The patient is a 74-year-old lady who was initially admitted after she had surgery on the right hip for DJD of the hip. The patient has history of hypertension, hyperlipidemia and rheumatoid arthritis. HOSPITAL COURSE: The patient postoperatively developed evidence of chest pain. The patient had troponin levels that were elevated. She was seen in Cardiology consult by Dr. Yanes. Echocardiogram done showed ejection fraction of 60%. The patient subsequently underwent a coronary angiography with PCI and stent placement in the mid LAD. The patient post-procedure had elevated liver function tests that are improving. The patient will now be transferred to senior living facility. She also had a CT angiography that showed no evidence of pulmonary embolism as well as a liver ultrasound that was essentially negative. FINAL DIAGNOSES: Therefore, * Acute myocardial infarction, status post coronary angiography and stent placement. * Hypertension. * Hyperlipidemia. * Fatty liver. * Rheumatoid arthritis. * Transaminitis. * Status post right hip surgery, for DJD of the hip. Time spent in discharge planning and review of plan with the patient, protective services social worker and nursing was 37 minutes. MD ANGELINA Cross/MYA TID: [id number] RECEIPT: [id number]
== END 2024-08-02 14:30 | DRG 323 ==
LOC: SUR 07:06 → OVERFLOW 11:15 → EAST 12:33 → TELE-EAST 07-26 22:25 → OVERFLOW 08-01 15:04 → EAST 08-01 15:10 → OVERFLOW 08-02 12:51 → TELE-EAST 08-02 12:56
PROVIDERS: ADMIT Internal Medicine; ATTEND Internal Medicine
PROC: 0SR90JZ Replacement of Right Hip Joint with Synthetic Substitute, Open Approach (ICD-10-PCS; principal; 2024-07-24 09:49)
PROC: 027034Z Dilation of Coronary Artery, One Artery with Drug-eluting Intraluminal Device, Percutaneous Approach (ICD-10-PCS; 2024-07-31)
PROC: 02F03ZZ Fragmentation in Coronary Artery, One Artery, Percutaneous Approach (ICD-10-PCS; 2024-07-31)
PROC: B2111ZZ Fluoroscopy of Multiple Coronary Arteries using Low Osmolar Contrast (ICD-10-PCS; 2024-07-31)
PROC: 4A023N7 Measurement of Cardiac Sampling and Pressure, Left Heart, Percutaneous Approach (ICD-10-PCS; 2024-07-31)
DX: I21.4 Non-ST elevation (NSTEMI) myocardial infarction (principal); J18.9 Pneumonia, unspecified organism; M16.11 Unilateral primary osteoarthritis, right hip; M06.9 Rheumatoid arthritis, unspecified; K76.0 Fatty (change of) liver, not elsewhere classified; E78.5 Hyperlipidemia, unspecified; I10 Essential (primary) hypertension; K59.00 Constipation, unspecified; E66.9 Obesity, unspecified; Z88.0 Allergy status to penicillin; Z88.8 Allergy status to other drugs, medicaments and biological substances; Z79.899 Other long term (current) drug therapy; Z83.3 Family history of diabetes mellitus; Z79.1 Long term (current) use of non-steroidal anti-inflammatories (NSAID); Z90.49 Acquired absence of other specified parts of digestive tract; Z68.29 Body mass index [BMI] 29.0-29.9, adult
CPT/HCPCS: 36415; 71045; 71275; 72170; 74018; 76705; 80048; 80053; 81001; 82962; 83036; 84484; 85025; 85379; 85610; 85730; 86850; 86900; 86901; 92941; 92972; 93005; 93306; 97110; 97116; 97163; 99152; G0378; J0131; J1100; J1815; J1885; J2250; J2405; J2470; J2704; J3490; Q9967